=== PATIENT | male | born 1945 | race Caucasian/White ===

== ENCOUNTER 2017-05-27 01:27 | Emergency (ER) | payer OTHER, MEDICARE ==
[~2017-05-27] VITALS: Ht 170.2 cm; Wt 68.8 kg
[~2017-05-27 01:27] MED LIST: ACETAMIN OR; ASA LO-DOSE81 MG OR; ASPIRIN81 MG OR; ATORVASTATI80 MG/TAB PO; ATORVASTATIN CA40 MG PO; B-1100 MG OR; BABY ASPIRIN81 MG OR; BACTRIM DS1 TAB PO; BACTROBAN2 % EX; BAYER ASPIRIN E81 MG PO; CIPROFLOXACN500 MG PO; CRESTOR40 MG OR; CYANOCOBALAM1000 MCG IJ; DOXYCYCL HYC100 MG OR; EFFEXOR75 MG PO; FOLIC ACID1 MG OR; FOLIC ACID5 MG OR; FOLITAB OR; GABAPENTIN100 M1 OR; GABAPENTIN600 MG OR; GABAPENTIN800 MG PO; GABARONE100 MG OR; HYDROCHLOROT12.5 MG OR; HYDROXYZINE OR; INSULIN 70/30; KEFLEX250 MG OR; LIBRIUM25 MG OR; LISINOP/HCTZ1 TA1 OR; LOPID600 MG OR; LOPRESSOR25 MG OR; LORTAB 5/3255 MG PO; LOSARTAN POT50 MG PO; METFORMIN500 MG PO; METOPROLOL25 MG OR; NEURONTIN600 MG OR; NEURONTIN600 MG PO; NOVOLIN 70/30 SC; OXYCODONE5 M1 OR; PAIN RELIEF500 MG OR; PROZAC20 MG OR; RISPERDAL0.25 MG PO; RISPERDAL1 M1 OR; RISPERDAL1 MG PO; ROBAXIN-750750 MG OR; ROBAXIN-750750 MG PO; ROBAXIN250 MG OR; TYLOPHEN500 MG PO; VITAMIN B-1100 M1 OR; VITAMIN B-121000 MCG OR; ZESTRIL20 MG OR; ZOCOR10 MG OR; [UNRECOGNIZED DRUG - MIXTURE] PO
[2017-05-27] MEDS ORDERED: LANTUS100 UNIT/M SC (01:46)
[2017-05-27] MEDS ORDERED: SERTRALINE50 MG PO (01:46)
[2017-05-27 02:24] LABS: HEMATOCRIT 38.8 % (39.0-50.0); HEMOGLOBIN 13.7 g/dl (14.0-18.0); IMMATURE GRANULOCYTES 0.3 % (0.0-1.0); MEAN CELL VOLUME 89.6 fL CALC (80.0-100.0); MEAN CORPUSCULAR HGB 31.6 pG CALC (26.0-32.0); MEAN CORPUSCULAR HGB CONC 35.3 g/L CALC (32.0-36.0); NEUT# 10.54 thou/uL (1.82-7.42); RED BLOOD COUNT 4.33 mill/uL (4.70-6.10); RED CELL DISTRI WIDTH 12.5 % (11.5-15.5)
[2017-05-27 02:36] LABS: ALBUMIN 4.3 g/dL (3.2-5.0); ALKALINE PHOSPHATASE 88 u/l (38-126); ANION GAP 18 (6-22 (CALC)); BILIRUBIN, TOTAL 0.8 mg/dL (0.0-1.4); BUN 18 mg/dL (8-23); BUN/CREATININE RATIO 23 (12-20 (CALC)); CALCIUM 9.9 mg/dL (8.4-10.2); CARBON DIOXIDE 26 mmol/l (22-30); CHLORIDE 97 mmol/l (95-108); CREATININE 0.8 mg/dL (0.7-1.3); GFR > 60 ML/MIN (>=60 (CALC)); GFR FOR AFR.AMER. > 60 ML/MIN (>=60 (CALC)); POTASSIUM 4.3 mmol/l (3.5-5.1); SGOT/AST 25 u/l (19-48); SGPT/ALT 48 u/l (11-66); SODIUM 137 mmol/l (137-146); TOTAL PROTEIN 7.2 g/dL (6.3-8.2)
[2017-05-27 02:38] LABS: GLUCOSE 479 mg/dL (82-115)
[2017-05-27 02:45] LABS: MYOGLOBIN 98 ng/mL (0 - 121)
[2017-05-27 02:55] LABS: URINE BILIRUBIN - DIPSTICK NEGATIVE (NEGATIVE); URINE BLOOD DIPSTICK NEGATIVE (NEGATIVE); URINE CLARITY CLEAR; URINE COLOR YELLOW; URINE GLUCOSE - DIPSTICK >=1000 mg/dL (NEGATIVE); URINE KETONE NEGATIVE (NEGATIVE); URINE LEUK ESTERASE NEGATIVE (NEGATIVE); URINE NITRITE - DIPSTICK NEGATIVE (Negative); URINE PROTEIN - DIPSTICK TRACE mg/dL (NEG-TRACE); URINE UROBILINOGEN - DIPSTICK 0.2 E.U./dL (0.2)
[2017-05-27 02:57] LABS: BARBITURATES NEGATIVE (NEGATIVE); COCAINE NEGATIVE (NEGATIVE); METHADONE NEGATIVE (NEGATIVE); OXCYCODONE NEGATIVE (NEGATIVE); TETRAHYDROCANNABIONOL NEGATIVE (NEGATIVE); TRICYLIC ANTIDEPRESSANTS NEGATIVE (NEGATIVE)
[2017-05-27 03:49] VITALS: BP 154/82
== END 2017-05-27 03:49 | disposition home or self-care (01) | DRG 639 ==
LOC: ED 01:27
PROVIDERS: Emergency Medicine
DX: E11.65 Type 2 diabetes mellitus with hyperglycemia (principal); Z79.52 Long term (current) use of systemic steroids; Z79.4 Long term (current) use of insulin; Z79.84 Long term (current) use of oral hypoglycemic drugs; Z72.89 Other problems related to lifestyle

== ENCOUNTER 2018-06-03 12:33 | Emergency (ER) | payer OTHER, MEDICARE ==
[~2018-06-03] VITALS: Ht 172.7 cm; Wt 65.9 kg
[~2018-06-03 12:33] MED LIST changes: +FLORASTOR250 M1 PO; +LANTUS100 UNIT/M SC; +LOSARTAN POT25 MG PO; +SERTRALINE50 MG PO
[2018-06-03 15:02] VITALS: BP 155/80
[2018-06-03] MEDS ORDERED: ORPHENADRINE100 MG PO (15:02)
[2018-06-03] MEDS ORDERED: PERCOGESI1 PO (15:02)
== END 2018-06-03 15:09 | disposition home or self-care (01) | DRG 605 ==
LOC: ED 12:33
DX: S20.212A Contusion of left front wall of thorax, initial encounter (principal); R07.81 Pleurodynia; W01.0XXA Fall on same level from slipping, tripping and stumbling without subsequent striking against object, initial encounter; Y93.K1 Activity, walking an animal; Y92.008 Other place in unspecified non-institutional (private) residence as the place of occurrence of the external cause

== ENCOUNTER 2018-08-21 14:12 | Observation (INO) | payer OTHER, MEDICARE ==
[~2018-08-21] VITALS: Ht 172.7 cm; Wt 64.1 kg
[~2018-08-21 14:12] MED LIST changes: +ORPHENADRINE100 MG PO; +PERCOGESI1 PO
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
[2018-08-21 14:39] LABS: HEMATOCRIT 36.1 % (39.0-50.0); HEMOGLOBIN 12.6 g/dl (14.0-18.0); IMMATURE GRANULOCYTES 0.2 % (0.0-5.0); MEAN CELL VOLUME 88.9 fL CALC (80.0-100.0); MEAN CORPUSCULAR HGB CONC 34.9 g/L CALC (32.0-36.0); NEUT# 8.21 thou/uL (1.82-7.42); RED BLOOD COUNT 4.06 mill/uL (4.70-6.10); RED CELL DISTRI WIDTH 12.6 % (11.5-15.5)
[2018-08-21] MEDS ORDERED: CVS PAIN RELIE PO (14:59)
[2018-08-21] MEDS ORDERED: VITAMIN B CO PO (15:00)
[2018-08-21] MEDS ORDERED: B-12 COMPL1000 MCG/M IM (15:01)
[2018-08-21 15:03] LABS: ALBUMIN 4.1 g/dL (3.2-5.0); ALKALINE PHOSPHATASE 94 u/l (38-126); ANION GAP 16 (6-22 (CALC)); BILIRUBIN, TOTAL 0.9 mg/dL (0.0-1.4); BUN 15 mg/dL (8-23); BUN/CREATININE RATIO 19 (12-20 (CALC)); CARBON DIOXIDE 22 mmol/l (22-30); CHLORIDE 104 mmol/l (95-108); CREATININE 0.8 mg/dL (0.7-1.3); GFR > 60 ML/MIN (>=60 (CALC)); GFR FOR AFR.AMER. > 60 ML/MIN (>=60 (CALC)); LIPASE 21 u/l (23-300); POTASSIUM 3.8 mmol/l (3.5-5.1); SGOT/AST 19 u/l (19-48); SODIUM 139 mmol/l (137-146); TOTAL PROTEIN 7.1 g/dL (6.3-8.2)
[2018-08-21] MEDS ORDERED: XALATAN 0.005%2.5 ML OP (15:03)
--- NOTE | 2018-08-21 15:10 | NUR ---
PATIENT ASSISTED TO SIDE OF BED TO USE URINAL. PATIENT REPORTS BEING UNABLE TO PROVIDE URINE SAMPLE AT THIS TIME. ASSISTED BACK ONTO STRETCHER. CALL LIGHT GIVEN. WILL CONTINUE TO MONITOR.
[2018-08-21 15:33] LABS: TSH, 3RD GENERATION 1.18 uIU/mL (0.47 - 4.68)
--- NOTE | 2018-08-21 15:49 | NUR ---
AT BEDSIDE TO DISCUSS RESULTS.
--- NOTE | 2018-08-21 16:01 | NUR ---
URINE SAMPLE OBTAINED VIA STRAIGHT CATH, URINE NOTED TO BE CLEAR YELLOW.
[2018-08-21 16:24] LABS: URINE BILIRUBIN - DIPSTICK NEGATIVE (NEGATIVE); URINE BLOOD DIPSTICK NEGATIVE (NEGATIVE); URINE COLOR YELLOW; URINE GLUCOSE - DIPSTICK NEGATIVE (NEGATIVE); URINE KETONE NEGATIVE (NEGATIVE); URINE LEUK ESTERASE NEGATIVE (NEGATIVE); URINE NITRITE - DIPSTICK NEGATIVE (Negative); URINE PROTEIN - DIPSTICK TRACE mg/dL (NEG-TRACE); URINE UROBILINOGEN - DIPSTICK 0.2 E.U./dL (0.2)
--- NOTE | 2018-08-21 16:40 | NUR ---
PATIENT ASSISTED TO AND FROM BSC, VANCO AND NS BOLUS INFUSING WELL. NO SIGNS OF DISTRESS NOTED, REPORTS PREVIOUSLY BEING TREATED FOR WOUND TO BOTTOM OF RIGHT FOOT. INFORMED.
--- NOTE | 2018-08-21 17:10 | NUR ---
PATIENT MEDICATED WITH 10 MG OF HYDRALAZINE SLOW IVP FOR TREATMENT OF BP 215/95.
--- NOTE | 2018-08-21 17:22 | NUR ---
SNACK PROVIDED PER PATIENT REQUEST.
--- NOTE | 2018-08-21 17:28 | NUR ---
APPROX. 1000 ML OF CLEAR YELLOW URINE OUT SINCE ARRIVAL TO ED.
--- NOTE | 2018-08-21 17:28 | NUR ---
ATTEMPT MADE TO CALL REPORT. NO ANSWER FROM [facility], WILL ATTEMPT AT LATER TIME.
--- NOTE | 2018-08-21 17:40 | NUR ---
ATTEMPT MADE TO CALL REPORTS, SPOKE TO ELMO. STATES NURSE WILL CALL BACK IN FIVE MINUTES.
--- NOTE | 2018-08-21 17:49 | NUR ---
REPORT GIVEN TO EMILIANA PERLA.
--- NOTE | 2018-08-21 17:53 | NUR ---
PT REPORT RECIEVED FROM DAMON LUO. PT TRANSPORTED [place] [facility] [place]ER ACCOMPIANED BY NURSE @[id number]. PT AMBULATED FROM STRETCHER TO BED W/ STEADY GAIT. VS DONE. ASSESSMENT COMPLETE. PT A/O X3. PERRLA. SPEECH IS CLEAR. PT APPEARS TO BE VERY ANXIOUS. RESP LABORED. SOB ON EXERTION. O2 @2L AT BEDSIDE. LUNG SOUNDS CLEAR. BOWEL SOUNDS ACTIVE X4. STRONG RADIAL AND PEDAL PULSES. PT C/O ACHING LT SHOULDER AND LOWER ABDOMINAL PAIN. 3 OUT OF 10 ON PAIN SCALE. REPOSITIONED FOR COMFORT. RELAXATION TECHNIQUES IN PLACE. DINNER PROVIDED. BSC NEAR BED. POC DISCUSSED. CALL LIGHT IN REACH. WILL CONTINUE TO MONITOR.
--- NOTE | 2018-08-21 18:00 | NUR ---
PATIENT TRANSPORTED TO [facility] VIA STRETCHER WITH TELE IN PLACE. EMILIANA PERLA AT BEDSIDE. PHONE, CLOTHING, SHOES AND WALLET TO [facility] WITH PATIENT. MEDS HOME WITH . CARE RELINQUISHED TO PAN.
--- NOTE | 2018-08-21 18:15 | NUR ---
PT APPEARS TO BE LESS ANXIOUS AT THIS TIME. EATING DINNER IN BED AND TALKING WITH FAMILY. CALL LIGHT IN REACH. WILL CONTINUE TO MONITOR.
[2018-08-21 18:23] VITALS: BP 169/75
[2018-08-21 19:05] VITALS: BP 159/68
--- NOTE | 2018-08-21 21:10 | NUR ---
PT HAS BEEN IN THE BATHROOM. IV SITE IS FREE FROM REDNESS OR EDMEA. HR IS REG,PULSES ARE STRONG X4, ABD IS SOFT WITH ACTIVE BS. BREATH SOUNDS ARE CLEAR, WITH NO C/O SOB, CONTINUE TO OBSERVE AND MONITOR. TELE MONITOR INPLACE.C/O PTSD WANTED ALL 4 SIDE RAILS UP EXPLAINED RULES OF THE HOSPITAL RE: 3 RAILS ONLY WITH BED TABLE NEXT TO THE BED. VERBALIZED UNDERSTANDING.
[2018-08-22] VITALS (8 sets, daily range): BP systolic 106–192; BP diastolic 42–76
--- NOTE | 2018-08-22 00:45 | NUR ---
PT IS RESTING INBETWEEN GOING TO THE BATHROOM, IV SITE IS FREE FROM REDNESS OR EDEMA. CONITNUE TO OBSERVE AND MONITOR TELE MONITOR IN PLACE.
--- NOTE | 2018-08-22 04:45 | NUR ---
PT IS RESTING IN BED WITH EYES CLOSED. IV SITE IS FREE FROM REDNESS OR EDEMA. CONTINUE TO OSEBRVE AND MONITOR.
--- NOTE | 2018-08-22 06:41 | NUR ---
PT BLOOD SUGAR IS 70 GIVING JUICE AND JELLO
[2018-08-22 06:53] LABS: CHOLESTEROL HDL RATIO 2.9 (<4.4 (CALC)); MAGNESIUM 1.8 mg/dL (1.6-2.3)
--- NOTE | 2018-08-22 11:35 | NUR ---
ORTHOSTATIC BP'S OBTAINED; NOTED ELEVATED BP, INFORMED . ORDERS FOR APRESOLINE IV. PT SITTING IN RECLINER AT BEDSIDE, VISITOR AT BEDSIDE, CALL LIGHT IN REACH, CONTINUE TO MONITOR.
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
--- NOTE | 2018-08-22 13:45 | NUR ---
PT IN CHAIR AT BEDSIDE, ARGUING WITH AT BEDSIDE REGARDING POC AND PT'S UNDERWEAR. BOTH APPEAR UPSET, PT STATES HE FEELS ANXIOUS AND NEEDS SOMETHING FOR ANXIETY. TO BEDSIDE DISCUSSING POC SINCE PT DOES NOT WANT TO BE DISCHARGED, XANAX ORDERED. MEDICATED PER MAR. CONTINUE TO MONITOR.
--- NOTE | 2018-08-22 14:40 | NUR ---
PT BEING TAKEN DOWN TO RADIOLOGY FOR EXAM VIA WHEELCHAIR ACCOMPANIED BY COVERAGE SPECIALIST RN. CONTINUE TO MONITOR.
--- NOTE | 2018-08-22 15:04 | NUR ---
PT RETURNED FROM RADIOLOGY, RESTARTED FLUIDS AND DISCUSSED ANTIBIOTIC.
--- NOTE | 2018-08-22 19:55 | NUR ---
REPORT FROM RODOLFO HOPSON. PT SITTING UP IN BED. ALERT AND ORIENTED. RESPIRATIONS EVEN AND UNLABORED. PT DENIES ANY PAIN OR DISCOMFORT. IV INFUSING WITHOUT DIFFICULTY. IV SITE APPEARS HEALTHY. ANIMAL NURSERY WORKER IN PLACE. ASSISTED PT TO BATHROOM TO VOID. PT VOID CLEAR YELLOW URINE. PT AMBULATED BACK TO BED WITH MINIMAL ASSISTANCE. DISCUSSED POC. PT DENIES ANY DIZZINESS. CALL LIGHT WITHIN REACH. WILL CONTINUE TO MONITOR.
--- NOTE | 2018-08-22 23:50 | NUR ---
ASSISTED PT TO BATHROOM AT THIS TIME TO VOID. PT AMBULATED WITH STAND BY ASSIST AND WALKED WITH STEADY GAIT. PT SPILLED URINAL PRIOR TO CALLING FOR ASSISTANCE. NEW GOWN PROVIDED AND LINENS CHANGED. PT POSITIONED BACK IN BED. MEDICATED WITH PRN APAP FOR GENERALIZED PAIN. CALL LIGHT WITHIN REACH. WILL CONTINUE TO MONITOR.
[2018-08-23] VITALS: BP 165/75
[2018-08-23 04:08] VITALS: BP 115/60
--- NOTE | 2018-08-23 05:01 | NUR ---
PT RESTING IN BED WITH EYES CLOSED. RESPIRATIONS EVEN AND UNLABORED. NO S/S OF PAIN OR DISCOMFORT NOTED. CALL LIGHT WITHIN REACH. WILL CONTINUE TO MONITOR.
[2018-08-23 10:20] VITALS: BP 152/68
--- NOTE | 2018-08-23 10:24 | NUR ---
PT RESTING IN BED, NO SIGNS OF DISTRESS NOTED, RESP EVEN AND UNLABORED. DISCUSSED POC, PT STATES HE IS UNSURE ABOUT GOING HOME, PT HAS AMBULATED TO BED WITHOUT DIFFICULTIES, OR SOB, OR DIZZYNESS. ASSESSMENT COMPLETED AT THIS TIME. MEDICATED PER OCT. CALL LIGHT IN REACH,CONTINUE TO MONITOR.
[2018-08-23 11:15] VITALS: BP 171/73
[2018-08-23 15:10] VITALS: BP 160/72
--- NOTE | 2018-08-23 15:25 | NUR ---
PT SITTING IN RECLINER AT BEDSIDE, REQUESTING PRUNE JUICE TO MOVE BOWELS STATES HE HAD A BM YESTERDAY BUT WAS NOT ENOUGH. ANTIBIOTIC INITIATED, PT BEGAN TO STATE HIS STOMACH IS UPSET FROM THE ANTIBIOTIC,MEDICATION EDUCATION PROVIDED. PRUNE JUICE PROVIDED. PT VERY ANXIOUS, MEDICATED WITH XANAX. CALL LIGHT IN REACH,CONTINUE TO MONITOR.
--- NOTE | 2018-08-23 16:34 | NUR ---
PT SITTING IN RECLINER AT BEDSIDE READING NEWSPAPER STATES HE WOULD LIKE TO WAIT UNTIL HE HAS HAD DINNER BEFORE HE IS DISCHARGED. CALL LIGHT IN REACH,CONTINUE TO MONITOR.
--- NOTE | 2018-08-23 17:14 | NUR ---
PT SITTING IN RECLINER, STATES HE IS READY TO GO HOME SINCE WE ARE NO LONGER DOING ANYTHING ABOUT HIS BOWELS. INFORMED PT THAT HE HAD A BM YESTERDAY, STATES "BUT THAT WAS YESTERDAY". DISCUSSED WITH PT DISCHARGE PLANS AND NO NEW PRESCRIPTIONS, NO CHANGES TO HIS HOME MEDICATIONS, AND PT TO F/U WITH HIS PRIMARY CARE PROVIDER, VERBALIZED UNDERSTANDING. IV SITE REMOVED, CATHETER INTACT. TELEMETRY REMOVED AND PT DRESSED. PT AWAITING HIS TO ARRIVE. CALL LIGHT IN REACH,CONTINUE TO MONITOR.
--- NOTE | 2018-08-23 17:21 | NUR ---
Discharge instructions given. Patient verbalizes understanding of same. Discharged in stable condition via Wheelchair to Home with staff. All belongings sent with pt.
== END 2018-08-23 17:19 | disposition home or self-care (01) | DRG 948 ==
LOC: ED 14:12 → ED-I 16:25 → ED 16:30 → MS2 16:31
PROVIDERS: Family Medicine; ADMIT Internal Medicine; ATTEND Internal Medicine
DX: R53.1 Weakness (principal); E87.2 Acidosis; R26.89 Other abnormalities of gait and mobility; I10 Essential (primary) hypertension; E11.65 Type 2 diabetes mellitus with hyperglycemia; E11.51 Type 2 diabetes mellitus with diabetic peripheral angiopathy without gangrene; E11.40 Type 2 diabetes mellitus with diabetic neuropathy, unspecified; F43.10 Post-traumatic stress disorder, unspecified; J44.9 Chronic obstructive pulmonary disease, unspecified; F41.9 Anxiety disorder, unspecified; F32.9 Major depressive disorder, single episode, unspecified; Z86.73 Personal history of transient ischemic attack (TIA), and cerebral infarction without residual deficits; Z91.11 Patient's noncompliance with dietary regimen; Z79.4 Long term (current) use of insulin; Z87.11 Personal history of peptic ulcer disease; Z87.891 Personal history of nicotine dependence; Z72.89 Other problems related to lifestyle

== ENCOUNTER 2018-08-30 10:22 | Inpatient (IN) | payer MEDICARE ==
[2018-08-30] VITALS (13 sets, daily range): BP systolic 145–190; BP diastolic 67–82
[~2018-08-30] VITALS: Ht 172.7 cm; Wt 64.1 kg
[~2018-08-30 10:22] MED LIST changes: +B-12 COMPL1000 MCG/M IM; +CVS PAIN RELIE PO; +VITAMIN B CO PO; +XALATAN 0.005%2.5 ML OP
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
--- NOTE | 2018-08-30 11:01 | NUR ---
PT PROVIDED ZOFRAN ORDERED.
[2018-08-30 11:33] LABS: HEMATOCRIT 41.2 % (39.0-50.0); HEMOGLOBIN 14.3 g/dl (14.0-18.0); IMMATURE GRANULOCYTES 0.2 % (0.0-5.0); MEAN CELL VOLUME 89.2 fL CALC (80.0-100.0); MEAN CORPUSCULAR HGB CONC 34.7 g/L CALC (32.0-36.0); NEUT# 5.98 thou/uL (1.82-7.42); RED BLOOD COUNT 4.62 mill/uL (4.70-6.10); RED CELL DISTRI WIDTH 12.6 % (11.5-15.5)
[2018-08-30 11:43] LABS: ALBUMIN 4.2 g/dL (3.2-5.0); ALKALINE PHOSPHATASE 113 u/l (38-126); ANION GAP 21 (6-22 (CALC)); BILIRUBIN, TOTAL 0.8 mg/dL (0.0-1.4); BUN 13 mg/dL (8-23); BUN/CREATININE RATIO 18 (12-20 (CALC)); CARBON DIOXIDE 24 mmol/l (22-30); CHLORIDE 100 mmol/l (95-108); CREATININE 0.7 mg/dL (0.7-1.3); ETHYL ALCOHOL 0 mg/dl (0-30); GFR > 60 ML/MIN (>=60 (CALC)); GFR FOR AFR.AMER. > 60 ML/MIN (>=60 (CALC)); SGOT/AST 27 u/l (19-48); SODIUM 140 mmol/l (137-146); TOTAL PROTEIN 7.4 g/dL (6.3-8.2)
[2018-08-30 11:48] LABS: POTASSIUM 4.6 mmol/l (3.5-5.1)
--- NOTE | 2018-08-30 12:46 | NUR ---
PT FINISHES ORAL CONTRAST, RADIOLOGY AWARE.
--- NOTE | 2018-08-30 13:58 | NUR ---
PT RETURNS FROM CT, WAITS IN ROOM FOR RESULTS.
[2018-08-30 16:08] LABS: URINE BILIRUBIN - DIPSTICK NEGATIVE (NEGATIVE); URINE BLOOD DIPSTICK NEGATIVE (NEGATIVE); URINE COLOR YELLOW; URINE GLUCOSE - DIPSTICK 500 mg/dL (NEGATIVE); URINE KETONE NEGATIVE (NEGATIVE); URINE LEUK ESTERASE NEGATIVE (NEGATIVE); URINE NITRITE - DIPSTICK NEGATIVE (Negative); URINE PROTEIN - DIPSTICK 30 mg/dL (NEG-TRACE); URINE UROBILINOGEN - DIPSTICK 0.2 E.U./dL (0.2)
[2018-08-30 16:09] LABS: URINE RBC 0-2 RBC/hpf (0-5); URINE WBC 0-2 WBC/hpf (0-5)
[2018-08-30 16:11] LABS: BARBITURATES NEGATIVE (NEGATIVE); COCAINE NEGATIVE (NEGATIVE); METHADONE NEGATIVE (NEGATIVE); OXCYCODONE NEGATIVE (NEGATIVE); TETRAHYDROCANNABIONOL NEGATIVE (NEGATIVE); TRICYLIC ANTIDEPRESSANTS NEGATIVE (NEGATIVE)
--- NOTE | 2018-08-30 17:05 | NUR ---
PT AWARE OF PENDING ADMISSION R/T ELEVATED BP AND CARDENE DRIP. PT ASSISTED TO BSC.
[2018-08-30] MEDS ORDERED: XALATAN0.005 % OU (17:25)
[2018-08-30] MEDS ORDERED: BRIMONIDINE0.2 % OS (17:26)
[2018-08-30] MEDS ORDERED: B-125000 MC2 PO (17:28)
[2018-08-30] MEDS ORDERED: METHOCARBAM500 MG PO (17:29)
[2018-08-30] MEDS ORDERED: PROAIR HFA IN (17:31)
[2018-08-30] MEDS ORDERED: NOVOLOG MIX SC (17:34)
--- NOTE | 2018-08-30 17:44 | NUR ---
REPORT CALLED TO PHYLLIS IN ICU, TO UNIT SOON.
--- NOTE | 2018-08-30 18:05 | NUR ---
PT ARRIVED TO UNIT ON STRETCHER WITH STATION REPAIRER & IV CARDENE RUNNING IN STABLE CONDITION. PT ABLE TO AMBULATE WITH MINIMAL ASSISTANCE TO ICU 2. PT WHINY SINCE ARRIVAL. GIVEN WARM BLANKETS x2. CARDENE STOPPED FOR BP OF 134/67. PT ON RA. AT BEDSIDE. PT REQUEST "WE TAP HIS FEET TO WAKE HIM UP BC HE HAS PTSD AND WILL WAKE UP SWINGING."
--- NOTE | 2018-08-30 19:00 | NUR ---
BEDSIDE REPORT RECEIVED FROM DAMON FERGUSON. PT RESTING IN BED SEMI FOWLERS WITH AT BEDSIDE; ALERT AND ORIENTED. REQUESTING SNACK. DENIES PAIN CURRENLTY. RESPIRATIONS EVEN AND UNLABORED ON ROOM AIR. BLOOD PRESSURE ELEVATED. CARDENE DRIP DISCONTINUED BY DAY SHIFT. IV SITE APPEARS HEALTHY AND IS CURRENTLY SALINE LOCKED. ORIENTED TO ROOM AND CALL LIGHT SYSTEM. PLAN OF CARE DISCUSSED. PT ENCOURAGED TO VERBALIZE CONCERNS. STATES UNDERSTANDING. SAFETY MEASURES IN PLACE. CALL LIGHT WITHIN REACH.
--- NOTE | 2018-08-30 20:11 | NUR ---
ASSESSMENT AND ADMISSION COMPLETE. PT VERY TALKATIVE AND PLEASANT. DR. CABELLO ORDERED HOME MEDICATIONS TO BE RESTARTED AND ONE DOSE OF CLONDINE FOR ELEVATED BP. PT DOES TAKE INSULIN FOR HIS DM AND METFORMIN. CT COMPLETED TODAY WITH IV CONTRAST WITH INSTRUCTIONS TO HOLD METFORMIN FOR 2 DAYS. ALL MEDICATIONS SENT HOME WITH ; KEPT EYE GTTS AND INHALER IN MED ROOM [facility]. ACCU CHECK IS 231.
--- NOTE | 2018-08-30 20:37 | NUR ---
PT SITTING UP EATING SNACK.
--- NOTE | 2018-08-30 22:54 | NUR ---
HS CARE GIVEN AND FACE SHAVED. PT CONTINUES TO DENY ANY PAIN. BLOOD PRESSURE DOWN TO 145/69 AFTER CLONDINE. NO OTHER REQUESTS OR CONCERNS AT THIS TIME.
--- NOTE | 2018-08-30 23:19 | NUR ---
JAYRO YEPEZ CALLED FOR AN UPDATE; PROVIDED CODE. ALL QUESTIONS ANSWERED TO SATISFACTION.
[2018-08-31] VITALS (13 sets, daily range): BP systolic 114–183; BP diastolic 56–77
--- NOTE | 2018-08-31 00:18 | NUR ---
PT C/O BEING HOT AND REMOVED ALL BLANKETS. AFEBRILE 97.3. C/O TINGLING TO LEGS; GABAPENTIN WAS ADMINISTERED AT HS. NO OTHER REQUESTS AT THIS TIME. NO VOIDS SINCE IN ER.
--- NOTE | 2018-08-31 01:00 | NUR ---
PT CONTINUES TO C/O BEING HOT AND IS SLIGHTLY SWEATY. ACCU CHECK 204. C/O HEADAHCE AND REQUESTS TYLENOL WHICH HE TAKES AT HOME FOR CHRONIC HEADAHCES.
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
--- NOTE | 2018-08-31 03:59 | NUR ---
PT ASLEEP AT THIS TIME WITH NO SIGNS OF DISTRESS. RESPIRATTIONS EVEN AND UNLABORED ON OXYGEN; SATURATIONS HAVE REMAINED ABOVE 90%. PT IS SINUS MAYURI ON TECHNICIAN SUBMARINE CABLE EQUIPMENT WITH HR LOW 48; ASYMPTOMATIC.
--- NOTE | 2018-08-31 05:00 | NUR ---
LAB AT BEDSIDE.
[2018-08-31 05:40] LABS: HEMATOCRIT 37.5 % (39.0-50.0); IMMATURE GRANULOCYTES 1.1 % (0.0-5.0); MEAN CELL VOLUME 89.7 fL CALC (80.0-100.0); MEAN CORPUSCULAR HGB 31.1 pG CALC (26.0-32.0); MEAN CORPUSCULAR HGB CONC 34.7 g/L CALC (32.0-36.0); NEUT# 5.67 thou/uL (1.82-7.42); RED BLOOD COUNT 4.18 mill/uL (4.70-6.10); RED CELL DISTRI WIDTH 12.7 % (11.5-15.5)
[2018-08-31 05:48] LABS: ANION GAP 13 (6-22 (CALC)); BUN 14 mg/dL (8-23); BUN/CREATININE RATIO 18 (12-20 (CALC)); CARBON DIOXIDE 28 mmol/l (22-30); CHLORIDE 102 mmol/l (95-108); CREATININE 0.7 mg/dL (0.7-1.3); GFR > 60 ML/MIN (>=60 (CALC)); GFR FOR AFR.AMER. > 60 ML/MIN (>=60 (CALC)); POTASSIUM 3.8 mmol/l (3.5-5.1); SODIUM 139 mmol/l (137-146)
[2018-08-31 05:50] LABS: MAGNESIUM 2.4 mg/dL (1.6-2.3)
--- NOTE | 2018-08-31 06:19 | NUR ---
PT RESTING IN BED ON LEFT SIDE; AWAKE. STATES THAT HEADACHE HAS SUBSIDED. VS STABLE.
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
--- NOTE | 2018-08-31 07:35 | NUR ---
PT ON BSC, SELF CARE PROVIDED, BACK TO SIDE OF BED AND THEN INTO BED WITH MIN ASSIST, REPOSITIONED SELF FOR COMFORT, MEAL TRAY SET UP ASSIST PROVIDED.
--- NOTE | 2018-08-31 08:40 | NUR ---
PT RESTING IN BED, COMFORT MEASURES PROVIDED, WILL CONTINUE TO MONITOR
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
--- NOTE | 2018-08-31 08:55 | NUR ---
PT REQUESTING WHEN HOUSEKEEPING COME IN IF THEY COULD" CLEAN OFF MY TABLE AND CLEAN MY COMB AND SUCH THAT WOULD BE GOOD" INFORMED PT THAT HOUSEKEEPING ISN'T RESPONSIBLE FOR CLEANING YOUR COMB BUT WILL HAVE THEM WIPE OFF TRAY TABLE AND MOP FLOORS.
--- NOTE | 2018-08-31 09:05 | NUR ---
SET UP ASSIST PROVIDED FOR REHEAT PART OF AM MEAL, FRESH COFFEE PROVIDED PER REQUEST, ADMINISTRATION IN TO SEE PT EARLIER FOR AM ROUNDS, TOOK AM MEDICATIONS W/O INCIDENT TOLERATED WELL, BP STABLE TELE READINTG SB SR RATE 50-60'S, CALL MONTOYA WITHIN REACH.
--- NOTE | 2018-08-31 09:25 | NUR ---
PT REQUESTING HOSEA CRACKERS, NONE ON UNIT, CALLED DIETARY AND REQUESTED, PT NOTIFIED.
--- NOTE | 2018-08-31 10:08 | NUR ---
PT STATING THAT HE POURED WATER IN HIS BED AND HIS LINENS ARE WET, LINEN AND GOWN CHANGED, PT TOLERATED WELL.
--- NOTE | 2018-08-31 10:48 | NUR ---
INTO SEE PATIENT, PLAN OF CARE DISCUSSED INCLUDING PT CONSULT, THERAPYAND TRANSFER TO MEDICAL FLOOR TO INCREASE MOVEMENT AND ACTIVITY, ALL QUESTIONS ANSWERED, CALL MONTOYA WITHIN REACH, WILL CONTINUE TO MONITOR.
--- NOTE | 2018-08-31 11:13 | NUR ---
ACCU CHECK COMPLETED, COVERAGE GIVEN ORDERED, MORE COFFEE PROVIDED AT PT REQUEST, AWAITING AFTERNOON MEAL, CALL MONTOYA WITHIN REACH. IN TO VISIT.
--- NOTE | 2018-08-31 11:23 | NUR ---
SET UP ASSIST PROVIDED FOR AFTERNOON MEAL, REMAINS AT BEDSIDE, COFFEE PROVIDED FOR SPOUSE PER REQUEST.
--- NOTE | 2018-08-31 11:57 | NUR ---
PT CALLS NURSE INTO ROOM, STATES HE IS DONE WITH HIS MEAL 75% INTAKE NOTE AND THAT HE NOTICED THERE WAS SUPPOSED TO BE AN UNSWEET TEA ON HIS TRAY AND COULD WE ORDER IT RACQUEL, DIETARY NOTIFIED.
--- NOTE | 2018-08-31 12:02 | NUR ---
UNSWEET TEA DELIVERED TO PATIENT
--- NOTE | 2018-08-31 12:53 | NUR ---
REQUESTING BLINDS BE CLOSED, "THE SUN IS AWFULLY BRIGHT" THIS NURSE UNABLE TO CLOSET THEM; MAINTAINENCE NOTIFIED
--- NOTE | 2018-08-31 12:57 | NUR ---
MAINTENANCE IN ROOM TO FIX BLINDS.
--- NOTE | 2018-08-31 13:06 | NUR ---
RT AT BEDSIDE FOR NEB
--- NOTE | 2018-08-31 13:28 | NUR ---
PHYSICAL THERAPY AT BEDSIDE
--- NOTE | 2018-08-31 13:49 | NUR ---
PHYSICAL THERAPT CONTINUES WITH PATIENT
--- NOTE | 2018-08-31 15:28 | NUR ---
pt resting in bed at this time, tolerated therapy well, seemed pleased with his activity, Fresh water provided in pitcher, offers no new complaints, call peters within reach.
--- NOTE | 2018-08-31 15:36 | NUR ---
pt oob to bsc, call peters within reach
--- NOTE | 2018-08-31 15:45 | NUR ---
pt puts sales communications manager light this nurses answers, pt back in bed without assist continent of urine and small soft brown bm, self samson care provided, call peters within reach.
--- NOTE | 2018-08-31 16:14 | NUR ---
pt family member brought pt pwn walkerfrom home for usage with ambulation left at bedside.
--- NOTE | 2018-08-31 17:23 | NUR ---
ACCU CHECK COMPLETED AND COVERAGE GIVENAS ORDERED, SET UP ASSIST PROVIDED FOR PM MEAL, CALL MONTOYA WITHIN REACH
--- NOTE | 2018-08-31 18:12 | NUR ---
TOLERATED PM MEAL WITHOUT INCIDENT, CALL MONTOYA WITHIN REACH
--- NOTE | 2018-08-31 18:40 | NUR ---
REPORT FROM Ella EISENBERG RN. ASSUMED PT. CARE.
--- NOTE | 2018-08-31 18:50 | NUR ---
PT. IT DESKTOP SUPPORT TECHNICIAN LIGHT. ASKING WHAT THE TEMPERATURE IN THE ROOM IS. PT. WAS INFORMED THAT THE TEMPERATURE WAS AT ITS LOWEST (COLDEST SETTING). PT. STATES HE WAS "HOT". OFFERED FAN, BUT PT. REFUSED AT THIS TIME.
--- NOTE | 2018-08-31 19:50 | NUR ---
PT. FOUND AWAKE, ALERT, ORIENTED X 3. LIRIANO. RONN. RESPS EVEN AND UNLABORED. SKIN WARM AND DRY. AFEBRILE. BENIGN ASSESSMENT. LUNGS CTA. PULSES INTACT. BP SLIGHTLY ELEVATED. WILL MEDICATE ORDERED. HR STABLE. CALL LIGHT WITHIN REACH. WILL CONTINUE TO MONITOR.
--- NOTE | 2018-08-31 20:30 | NUR ---
PT. ASSISTED TO BSC. SMALL SOFT, BM NOTED ALONG WITH APPROX 300 CC URINE OUT AT THIS TIME. PT. ASSISTED BACK TO BED AND PLACED BACK ON MONITOR. CALL LIGHT REMAINS WITHIN REACH. WILL CONTINUE TO MONITOR.
--- NOTE | 2018-08-31 21:00 | NUR ---
PT. PROVIDED WITH HS DIABETIC SNACK AT THIS TIME. WILL CONTINUE TO MONITOR.
--- NOTE | 2018-08-31 22:30 | NUR ---
PT. MEDICATED WITH BP MED AND PAIN MEDICATION AT THIS TIME. WILL CONTINUE TO ASSESS FOR IMPROVEMENT IN SX.
--- NOTE | 2018-08-31 23:00 | NUR ---
THIS RN CALLED TO ROOM. PT. REQUESTING THAT OVERHEAD LIGHT BE TURNED OFF AT THIS TIME. BATHROOM DOOR OPENED TO ALLOW ACCEPTABLE LEVEL OF LIGHT INTO ROOM. PT. DENIES OTHER COMPLAINTS OR NEEDS.
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
[2018-09-01] VITALS: BP 114/57
--- NOTE | 2018-09-01 01:11 | NUR ---
PT. ASSISTED TO BSC AT THIS TIME. APPROX 200 CC CLEAR URINE OUT AT THIS TIME
--- NOTE | 2018-09-01 01:15 | NUR ---
PT. ASSISTED BACK TO BED. REMAINS IN NO DISTRESS. MEDICATED FOR MILD HEADACHE AT THIS TIME. OFFERED TO TURN DOWN LIGHTS, BUT PT. REFUSED AT THIS TIME. WILL CONTINUE TO MONITOR.
--- NOTE | 2018-09-01 01:35 | NUR ---
PT. FISH PITCHER LIGHT. REQUESTING LIGHTS BE TURNED DOWN AT THIS TIME. REQUEST PERFORMED.
--- NOTE | 2018-09-01 02:30 | NUR ---
PT. WORKSHOP MANAGER LIGHT. STATES HE THINKS HIS SUGAR IS LOW. PT. STATES HE IS "QUEEZY" AND HIS "MOUTH IS DRY" AND HE STATES THAT HAPPENS WHEN HIS SUGAR IS LOW. ACCUCHECK FOUND TO BE 100 G/DL AT THIS TIME. REASSURED AND ENCOURAGED TO GET SOME REST.
[2018-09-01 04:00] VITALS: BP 124/62
--- NOTE | 2018-09-01 05:00 | NUR ---
PT. ASSISTED BACK TO BSC. REMAINS IN NO DISTRESS. BP/HR STABLE. AFEBRILE. CALL LIGHT REMAINS WITHIN REACH. WILL CONTINUE TO MONITOR.
--- NOTE | 2018-09-01 05:15 | NUR ---
LAB AT BEDSIDE TO DRAW PATIENT.
[2018-09-01 05:34] LABS: HEMATOCRIT 38.7 % (39.0-50.0); HEMOGLOBIN 13.2 g/dl (14.0-18.0); IMMATURE GRANULOCYTES 0.1 % (0.0-5.0); MEAN CORPUSCULAR HGB 30.3 pG CALC (26.0-32.0); MEAN CORPUSCULAR HGB CONC 34.1 g/L CALC (32.0-36.0); NEUT# 7.42 thou/uL (1.82-7.42); RED BLOOD COUNT 4.35 mill/uL (4.70-6.10); RED CELL DISTRI WIDTH 12.4 % (11.5-15.5)
[2018-09-01 06:00] LABS: ALBUMIN 3.8 g/dL (3.2-5.0); ALKALINE PHOSPHATASE 86 u/l (38-126); AMYLASE 44 u/l (30-110); ANION GAP 16 (6-22 (CALC)); BILIRUBIN, TOTAL 0.5 mg/dL (0.0-1.4); BUN 11 mg/dL (8-23); BUN/CREATININE RATIO 14 (12-20 (CALC)); CARBON DIOXIDE 25 mmol/l (22-30); CHLORIDE 104 mmol/l (95-108); CREATININE 0.8 mg/dL (0.7-1.3); GFR > 60 ML/MIN (>=60 (CALC)); GFR FOR AFR.AMER. > 60 ML/MIN (>=60 (CALC)); LIPASE 42 u/l (23-300); MAGNESIUM 2.1 mg/dL (1.6-2.3); POTASSIUM 4.1 mmol/l (3.5-5.1); SGOT/AST 26 u/l (19-48); SODIUM 141 mmol/l (137-146); TOTAL PROTEIN 6.7 g/dL (6.3-8.2)
--- NOTE | 2018-09-01 07:15 | NUR ---
PT AWAKE RESTING IN BED, ALERT AND ORIENTED, TELE READING SR RATE IN THE 80'S BP STABLE AND PT AFEBRILE, AM ASSESSMETNT COMPLETED SEE INTERVENTIONS. LUNGS CLEAR WITH NO SOB OR DISTRESS NOTED AT REST, O2 ONAT 2L VIA NC, SKIN WARM DRY AND INTACT WITH SMALL DRY ABRASIONS NOTED TO BILATERAL KNEES, NO S/SO INFECTION NOTED, COMFORT MEASURES PROVIDED, CALL MONTOYA WITHIN REACH, WILL CONTINUE TO MONITOR,
--- NOTE | 2018-09-01 07:45 | NUR ---
PT PLACES HOT DIP GALVANIZER LIGHT TO ASK IF HE CAN EAT THE SALT THAT IS ON HIS TRAY, EDUCATED SHERYL MARTINES WITHIN REACH
[2018-09-01 08:00] VITALS: BP 150/69
--- NOTE | 2018-09-01 08:00 | NUR ---
PT CALLED AFTER DROPPING SILVERWARE ON FLOOR, ASKING STAFF TO WASH AND REPLACE FOR HIM, COMPLETED REQUESTED.
--- NOTE | 2018-09-01 08:28 | NUR ---
DIETARY AT BEDSIDE FOR MEAL SELECTION
--- NOTE | 2018-09-01 08:48 | NUR ---
PT CALLS REQUESTING COFFEE HEATED UP "NOT TO HOT JUST WARM IT UP A LITTLE PLEASE", DONE REQUESTED. MEAL TRAY REMOVED, PT TOLERATED AM MEAL WELL.
--- NOTE | 2018-09-01 09:10 | NUR ---
R.T. AT BEDSIDE PT REQUESTING TO "FINISH MY COFFEE, BEFORE MY BREATHIG TREATMENT PLEASE" R.T. TO RETURN LATER.
--- NOTE | 2018-09-01 09:39 | NUR ---
PT SPEAKING WITH FAMILY MEMBER VIA ICU PORTABLE PHONE
--- NOTE | 2018-09-01 10:00 | NUR ---
IN TO SEE PATIENT, PLAN OF CARE DISCUSSED INCLUDING POTENTIAL D/C TODAY, IF P.T. IN TO SEE PATIENT AND DETERMINE NEEDS WITH PERSONAL WALKER CURRENTLY AT BEDSIDE, P.T. NOTIFIED OF REQUEST FOR PT TO SEE PATIENT SOON POSSIBLE THIS AM
--- NOTE | 2018-09-01 10:47 | NUR ---
NAYA BROTHERS AT [facility]
--- NOTE | 2018-09-01 11:09 | NUR ---
ACCU CHECK COMPLETED AND INSULIN COVERAGE GIVEN ORDERED, PT REPOSITIONS SELF FOR COMFORT, CALL MONTOYA WITHIN REACH
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
[2018-09-01 12:00] VITALS: BP 120/58
--- NOTE | 2018-09-01 12:05 | NUR ---
PT REQUESTED MEAL TO BE REHEATED, DONE REQUESTED.
[2018-09-01] MEDS ORDERED: TRAMADOL HCL50 MG PO (12:21)
[2018-09-01] MEDS ORDERED: LOSARTAN POT50 MG PO (12:21)
--- NOTE | 2018-09-01 12:42 | NUR ---
ATE MINIMAL OF MEAL BUT DID TAKE IN 100% OF CHOCOLATE GLUCERNA AND TOLERATING WELL. CALL MONTOYA WITHIN REACH
--- NOTE | 2018-09-01 12:54 | NUR ---
PT AWARE OF DISCHARGE ORDER TO HOME WITH HOME HEALTH. PT TO CALL FOR TRANSPORT.
--- NOTE | 2018-09-01 13:08 | NUR ---
CONTINUES TO ATTEMPT TO GET AHOLD OF HIS SPOUSE OR FAMILY MEMBER FOR TRASNPORT. HH SELECTION COMPLETED WELL.
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
--- NOTE | 2018-09-01 13:37 | NUR ---
PT STATES HE GOT AHOLD OF A FAMILY MEMBER WHO WILL LET HIS KNOW HE IS BEING DISCHARGED.
--- NOTE | 2018-09-01 13:55 | NUR ---
RESTING IN BED, ALERT AND ORIENTED, CALL MONTOYA WITHIN REACH, WILL CONTINUE TO MONITOR.
--- NOTE | 2018-09-01 15:13 | NUR ---
AT BEDSIDE, PT ASSISTED TO BSC, WALKER AND BELONGINGS TAKEN DOWNSTAIRS BY SPOUSE.
--- NOTE | 2018-09-01 15:25 | NUR ---
Discharge instructions given. Patient verbalizes understanding of same. Discharged in stable condition via Wheelchair to Home with family. All belongings sent with pt. SCRIPTS FOR ULTRAM AND COZAAR WITH PATIENT.
== END 2018-09-01 15:25 | disposition home health service (06) | DRG 305 ==
LOC: ED 10:22 → ED-I 17:00 → ED 17:27 → ICU 17:28
PROVIDERS: Emergency Medicine; Internal Medicine Nephrology; ADMIT Internal Medicine; ATTEND Internal Medicine
DX: I16.1 Hypertensive emergency (principal); I10 Essential (primary) hypertension; E11.51 Type 2 diabetes mellitus with diabetic peripheral angiopathy without gangrene; M19.90 Unspecified osteoarthritis, unspecified site; F43.10 Post-traumatic stress disorder, unspecified; J44.9 Chronic obstructive pulmonary disease, unspecified; E11.40 Type 2 diabetes mellitus with diabetic neuropathy, unspecified; E11.65 Type 2 diabetes mellitus with hyperglycemia; E78.5 Hyperlipidemia, unspecified; R26.89 Other abnormalities of gait and mobility; R53.1 Weakness; T42.6X5A Adverse effect of other antiepileptic and sedative-hypnotic drugs, initial encounter; T48.1X5A Adverse effect of skeletal muscle relaxants [neuromuscular blocking agents], initial encounter; F41.9 Anxiety disorder, unspecified; F32.9 Major depressive disorder, single episode, unspecified; G89.29 Other chronic pain; M54.9 Dorsalgia, unspecified; M54.2 Cervicalgia; F17.200 Nicotine dependence, unspecified, uncomplicated; Z72.89 Other problems related to lifestyle; Z79.4 Long term (current) use of insulin; Z86.73 Personal history of transient ischemic attack (TIA), and cerebral infarction without residual deficits
CPT/HCPCS: Q9967

== ENCOUNTER → 2018-11-09 | Outpatient (REF) | payer MEDICARE ==
[~2018-11-09] MED LIST changes: +B-125000 MC2 PO; +BRIMONIDINE0.2 % OS; +METHOCARBAM500 MG PO; +NOVOLOG MIX SC; +PROAIR HFA IN; +TRAMADOL HCL50 MG PO; +XALATAN0.005 % OU
== END | disposition home or self-care (01) ==
LOC: STRESS 13:12 → NUCMED 14:15
PROVIDERS: ATTEND Internal Medicine
DX: I20.9 Angina pectoris, unspecified (principal); R06.02 Shortness of breath; I70.209 Unspecified atherosclerosis of native arteries of extremities, unspecified extremity
CPT/HCPCS: A9502; J2785

== ENCOUNTER 2019-02-24 10:34 | Observation (INO) | payer MEDICARE ==
[~2019-02-24] VITALS: Ht 172.7 cm; Wt 62.6 kg
--- NOTE | 2019-02-24 10:40 | NUR ---
PATIENT TO ROOM VIA WHEELCHAIR AND PHYSICIAN NOTIFIED OF PATIENT STATUS
--- NOTE | 2019-02-24 10:55 | NUR ---
IN TO START IV. 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 TOLERATED IV START WELL.
--- NOTE | 2019-02-24 11:10 | NUR ---
PT MEDICAITED FOR COMPLAINTS OF 4/10 CHEST PAIN. PT STATES ITS NOT HIS PAIN HE IS WORRIED ABOUT ITS HIS SHORTNESS OF BREATH, RESP PATTERN NON-LABORED, 02 SATS 100%. TALKING NON-STOP TO STAFF/FAMILY AT BEDSIDE.
--- NOTE | 2019-02-24 11:15 | NUR ---
PT UNSURE OF MEDICATIONS AND DOSAGES. PATIENT VERY CONCERED ABOUT HIS ZOLOFT THAT HE DID NOT TAKE THIS MORNING.
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
[2019-02-24 11:20] LABS: HEMATOCRIT 35.6 % (39.0-50.0); HEMOGLOBIN 11.7 g/dl (14.0-18.0); IMMATURE GRANULOCYTES 0.3 % (0.0-5.0); MEAN CELL VOLUME 85.4 fL CALC (80.0-100.0); MEAN CORPUSCULAR HGB 28.1 pG CALC (26.0-32.0); MEAN CORPUSCULAR HGB CONC 32.9 g/L CALC (32.0-36.0); NEUT# 4.65 thou/uL (1.82-7.42); RED BLOOD COUNT 4.17 mill/uL (4.70-6.10); RED CELL DISTRI WIDTH 16.4 % (11.5-15.5)
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
--- NOTE | 2019-02-24 11:20 | NUR ---
PT YELLING OUT TO NURSES STATION, BELLE, CHARGE NURSE IN TO SPEAK WITH PATIENT REGARDING BEHAVIOR.
[2019-02-24 11:46] LABS: ALBUMIN 3.9 g/dL (3.2-5.0); ALKALINE PHOSPHATASE 108 u/l (38-126); ANION GAP 14 (6-22 (CALC)); BILIRUBIN, TOTAL 0.7 mg/dL (0.0-1.4); BUN 19 mg/dL (8-23); BUN/CREATININE RATIO 25 (12-20 (CALC)); CARBON DIOXIDE 26 mmol/l (22-30); CHLORIDE 104 mmol/l (95-108); CREATININE 0.8 mg/dL (0.7-1.3); GFR > 60 ML/MIN (>=60 (CALC)); GFR FOR AFR.AMER. > 60 ML/MIN (>=60 (CALC)); POTASSIUM 3.7 mmol/l (3.5-5.1); SGOT/AST 20 u/l (19-48); SODIUM 140 mmol/l (137-146); TOTAL PROTEIN 6.6 g/dL (6.3-8.2)
[2019-02-24 11:58] LABS: MYOGLOBIN 60 ng/mL (0 - 121)
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
--- NOTE | 2019-02-24 12:39 | NUR ---
NURSING TANK CLEANING SUPERVISOR AT BEDSIDE.
--- NOTE | 2019-02-24 13:03 | NUR ---
PT UP TO BSC, [place] IN TO ASSIST.
--- NOTE | 2019-02-24 13:10 | NUR ---
REPORT GIVEN TO MARGARITO
--- NOTE | 2019-02-24 13:18 | NUR ---
PATIENT REQUESTS TO FINISH MEAL TRAY PRIOR TO TRANSPORT TO [facility]
--- NOTE | 2019-02-24 13:39 | NUR ---
PATIENT TRANSPORTED TO [facility]
[2019-02-24 14:05] VITALS: BP 146/68
--- NOTE | 2019-02-24 15:37 | NUR ---
REPORT RECEIVED FROM BELLE PT ARRIVED ON UNIT VIA W/C @ 5294 AND SETTLED IN BED. ALERT AND ORIENTED X 3, NO C/O PAIN, ORIENTED TO ROOM AND CALL MONTOYA. VERY TALKATIVE AND REQUESTING ZOLOFT AT THIS TIME, ADVISED MED REC NEEDS UPDATING BUT COULDN'T GIVE LIST OF CURRENT MEDICATIONS. ADVISED TO HAVE SPOUSE BRING IN MEDS BUT SPOUSE STATED SHE DOES NOT KNOW WHERE THEY ARE NEITHER DOES SHE KNOW WHAT HE IS TAKING, PT ALSO REPORTED HE HAS VERY MANY MEDS AND SPOUSE WOULDN'T KNOW WHAT TO BRING IN. BOTH WERE ADVISED TO BRING ALL MEDICATIONS INCLUDING EMPTY BOTTLES IF ANY BUT PATIENT INSISTED TO CONTACT [place] TO FURNISH MED LIST TO US. PHARMACIST HAS BEEN IN ROOM TRYING TO OBTAIN INFORMATION FROM APPROXIMATELY 1430 UNTIL THIS PRESENT TIME OF 1544.
[2019-02-24] MEDS ORDERED: METFORMIN HCL500 M1 PO (15:55)
[2019-02-24] MEDS ORDERED: ATORVASTATIN CA40 MG PO (15:55)
[2019-02-24] MEDS ORDERED: SERTRALINE50 MG PO (15:58)
[2019-02-24] MEDS ORDERED: TACTINAL325 MG PO (15:59)
[2019-02-24] MEDS ORDERED: LATANOPROST0.005 % OU (16:00)
[2019-02-24 16:01] VITALS: BP 161/78
[2019-02-24] MEDS ORDERED: B-125000 MC2 PO (16:03)
[2019-02-24] MEDS ORDERED: BRIMONIDINE0.2 % OS (16:03)
[2019-02-24] MEDS ORDERED: PROAIR HFA108 MCG/AC IN (16:04)
[2019-02-24] MEDS ORDERED: NOVOLOG MIX SC (16:05)
[2019-02-24] MEDS ORDERED: ADULT ASPIRIN E81 MG PO (16:06)
[2019-02-24] MEDS ORDERED: LOSARTAN POT50 MG PO (16:06)
[2019-02-24] MEDS ORDERED: NEURONTIN800 MG PO (16:07)
[2019-02-24] MEDS ORDERED: MULTIVITAMI9 PO (16:07)
[2019-02-24] MEDS ORDERED: METHOCARBAM500 MG PO (16:08)
[2019-02-24 16:27] LABS: URINE BILIRUBIN - DIPSTICK NEGATIVE (NEGATIVE); URINE BLOOD DIPSTICK NEGATIVE (NEGATIVE); URINE COLOR YELLOW; URINE GLUCOSE - DIPSTICK 250 mg/dL (NEGATIVE); URINE KETONE NEGATIVE (NEGATIVE); URINE LEUK ESTERASE NEGATIVE (NEGATIVE); URINE NITRITE - DIPSTICK NEGATIVE (Negative); URINE PH 5.5 (4.5-8.0); URINE PROTEIN - DIPSTICK NEGATIVE (NEG-TRACE); URINE SPECIFIC GRAVITY <=1.005; URINE UROBILINOGEN - DIPSTICK 0.2 E.U./dL (0.2)
--- NOTE | 2019-02-24 19:00 | NUR ---
BEDSIDE REPORT RECEIVED FROM DAMON PIMENTEL. PT RESTING IN BED SEMI FOWLERS; ALERT AND ORIENTED; TALKATIVE. DENIES PAIN CURRENTLY. RESPIRATIONS EVEN AND UNLABORED ON ROOM AIR. PLAN OF CARE REVIEWED. PT [id number] TO VERBALIZE CONCERNS. STATES UNDERSTANDING. SAFETY MEASURES IN PLACE. CALL LIGHT WITHIN REACH.
[2019-02-24 19:25] VITALS: BP 146/80
--- NOTE | 2019-02-24 19:56 | NUR ---
PT REPORTS 4/10 RIGHT SIDED CHEST PAIN THAT LASTED 2 MINUTES THEN SUBSIDED. BLOOD PRESSURE ELEVATED DURING THIS TIME. TYLENOL GIVEN, EDUCATED ON RELAXATION TECHNIQUES. F/U BP 163/80 HR 61. WILL CONTINUE TO MONITOR.
[2019-02-24 20:01] VITALS: BP 163/80
--- NOTE | 2019-02-24 23:48 | NUR ---
PT REQUESTING HIS HOME MEDICATION GABAPENTIN TO HELP HIM SLEEP AND STATES THAT HE WILL BE UP ALL NIGHT IF HE DOES NOT TAKE IT. VS STABLE. IV SITE APPEARS HEALTHY AND FLUSHES. INDEPENDENT IN ROOM; USES CALL LIGHT PRN FOR ASSISTANCE. DENIES PAIN CURRENTLY, ONLY RESTLESSNESS. RESPIRATIONS EVEN AND UNLABORED ON ROOM AIR. SAFETY MEASURES IN PLACE. CALL LIGHT WITHIN REACH.
[2019-02-25 00:08] VITALS: BP 132/64
--- NOTE | 2019-02-25 00:14 | NUR ---
GABAPENTIN ADMINISTERED. PT REQUESTS THAT STAFF AWAKEN HIM BY TAPPING HIS FOOT HE HAS PTSD AND SOMETIMES IS COMBATIVE UPON WAKENING.
--- NOTE | 2019-02-25 00:16 | NUR ---
LAB AT BEDSIDE FOR TROPONIN.
--- NOTE | 2019-02-25 03:25 | NUR ---
PT AWAKE TO USE URINAL. NOTIFIES NURSE THAT HE THINKS THAT HIS BLOOD SUGAR IS TOO LOW; FINGER STICK 96. SNACK PROVIDED AND TYLENOL GIVEN FOR HEADAHCE 10/30.
[2019-02-25 04:37] VITALS: BP 173/81
[2019-02-25 06:15] LABS: HEMATOCRIT 37.3 % (39.0-50.0); HEMOGLOBIN 12.1 g/dl (14.0-18.0); IMMATURE GRANULOCYTES 0.1 % (0.0-5.0); MEAN CELL VOLUME 86.7 fL CALC (80.0-100.0); MEAN CORPUSCULAR HGB 28.1 pG CALC (26.0-32.0); MEAN CORPUSCULAR HGB CONC 32.4 g/L CALC (32.0-36.0); NEUT# 3.94 thou/uL (1.82-7.42); RED BLOOD COUNT 4.3 mill/uL (4.70-6.10); RED CELL DISTRI WIDTH 16.5 % (11.5-15.5)
[2019-02-25 06:27] LABS: ALBUMIN 3.8 g/dL (3.2-5.0); ALKALINE PHOSPHATASE 109 u/l (38-126); AMYLASE 73 u/l (30-110); ANION GAP 14 (6-22 (CALC)); BILIRUBIN, TOTAL 0.6 mg/dL (0.0-1.4); BUN 18 mg/dL (8-23); BUN/CREATININE RATIO 28 (12-20 (CALC)); CARBON DIOXIDE 24 mmol/l (22-30); CHLORIDE 109 mmol/l (95-108); CREATININE 0.6 mg/dL (0.7-1.3); GFR > 60 ML/MIN (>=60 (CALC)); GFR FOR AFR.AMER. > 60 ML/MIN (>=60 (CALC)); LIPASE 98 u/l (23-300); MAGNESIUM 1.9 mg/dL (1.6-2.3); SGOT/AST 23 u/l (19-48); SODIUM 142 mmol/l (137-146); TOTAL PROTEIN 6.5 g/dL (6.3-8.2)
[2019-02-25 06:30] LABS: POTASSIUM 4.5 mmol/l (3.5-5.1)
[2019-02-25 06:53] VITALS: BP 146/82
--- NOTE | 2019-02-25 07:35 | NUR ---
ASSESSMENT IS COMPLTED: IV SITE IS FREE FROM REDNESS OR EDEMA. BREATH SOUNDS ARE CLEAR,BILATERALLY. HR IS REG, PULSES ARE STRONG X4, ABD IS SOFT WITH ACTIVE BS. TELE MONITOR IN PLACE. CONTINUE TO OBSERVE AND MONITOR.
[2019-02-25 09:17] LABS: CHOLESTEROL HDL RATIO 4.1 (<4.4 (CALC))
[2019-02-25 11:06] VITALS: BP 140/68
--- NOTE | 2019-02-25 12:00 | NUR ---
PT IS RELAXING IN BED WITH NO DISTRESS NOTED. HAS BEEN AMBULATING IN THE [place]
--- NOTE | 2019-02-25 13:45 | NUR ---
CALLED PT'S AND EXPLAINED THAT PT WOULD BE DISCHARGED IN 15 MINUTES. VERBALIZED UNDERSTANDING.,
--- NOTE | 2019-02-25 14:30 | NUR ---
IV SITE DISCONTINUED CATHETER INTACT. NO REDNESS OR EDEMA. DISCHARGE INSTRUCTIONS GIVEN AND VERBALIZED UNDERSTANDING. FAMILY AWARE AND ON HER WAY,
== END 2019-02-25 14:45 | disposition home or self-care (01) ==
LOC: ED 10:34 → ED-I 11:06 → ED 12:28 → MS2 12:29
PROVIDERS: Emergency Medicine; Nurse Practitioner Family; ADMIT Internal Medicine Nephrology; ATTEND Internal Medicine Nephrology
DX: R07.89 Other chest pain (principal); E11.51 Type 2 diabetes mellitus with diabetic peripheral angiopathy without gangrene; I10 Essential (primary) hypertension; I25.10 Atherosclerotic heart disease of native coronary artery without angina pectoris; D64.9 Anemia, unspecified; J44.9 Chronic obstructive pulmonary disease, unspecified; E11.65 Type 2 diabetes mellitus with hyperglycemia; E11.40 Type 2 diabetes mellitus with diabetic neuropathy, unspecified; F41.1 Generalized anxiety disorder; F43.10 Post-traumatic stress disorder, unspecified; I25.2 Old myocardial infarction; M19.90 Unspecified osteoarthritis, unspecified site; T38.3X6A Underdosing of insulin and oral hypoglycemic [antidiabetic] drugs, initial encounter; Z91.128 Patient's intentional underdosing of medication regimen for other reason; Z91.11 Patient's noncompliance with dietary regimen; Z79.4 Long term (current) use of insulin; Z95.5 Presence of coronary angioplasty implant and graft; Z86.73 Personal history of transient ischemic attack (TIA), and cerebral infarction without residual deficits
CPT/HCPCS: J1650

== ENCOUNTER 2019-04-27 10:52 | Emergency (ER) | payer OTHER, MEDICARE ==
[~2019-04-27] VITALS: Ht 172.7 cm; Wt 60.0 kg
[~2019-04-27 10:52] MED LIST changes: +ADULT ASPIRIN E81 MG PO; +LATANOPROST0.005 % OU; +METFORMIN HCL500 M1 PO; +MULTIVITAMI9 PO; +NEURONTIN800 MG PO; +PROAIR HFA108 MCG/AC IN; +TACTINAL325 MG PO
[2019-04-27] MEDS ORDERED: IRON (FERROUS S50 MG PO (11:20)
[2019-04-27] MEDS ORDERED: BUSPIRONE5 MG PO (11:21)
[2019-04-27 11:36] LABS: HEMATOCRIT 37.4 % (39.0-50.0); HEMOGLOBIN 12.8 g/dl (14.0-18.0); IMMATURE GRANULOCYTES 0.4 % (0.0-5.0); MEAN CELL VOLUME 84.8 fL CALC (80.0-100.0); MEAN CORPUSCULAR HGB CONC 34.2 g/L CALC (32.0-36.0); NEUT# 7.68 thou/uL (1.82-7.42); RED BLOOD COUNT 4.41 mill/uL (4.70-6.10); RED CELL DISTRI WIDTH 14.8 % (11.5-15.5)
[2019-04-27 12:17] LABS: ALKALINE PHOSPHATASE 160 u/l (38-126); ANION GAP 15 (6-22 (CALC)); BILIRUBIN, TOTAL 0.8 mg/dL (0.0-1.4); BUN 20 mg/dL (8-23); BUN/CREATININE RATIO 22 (12-20 (CALC)); CARBON DIOXIDE 26 mmol/l (22-30); CHLORIDE 101 mmol/l (95-108); CREATININE 0.9 mg/dL (0.7-1.3); GFR > 60 ML/MIN (>=60 (CALC)); GFR FOR AFR.AMER. > 60 ML/MIN (>=60 (CALC)); LIPASE 47 u/l (23-300); POTASSIUM 4.6 mmol/l (3.5-5.1); SGOT/AST 31 u/l (19-48); SODIUM 137 mmol/l (137-146); TOTAL PROTEIN 7.4 g/dL (6.3-8.2)
[2019-04-27 15:00] LABS: URINE BILIRUBIN - DIPSTICK NEGATIVE (NEGATIVE); URINE BLOOD DIPSTICK NEGATIVE (NEGATIVE); URINE COLOR YELLOW; URINE GLUCOSE - DIPSTICK NEGATIVE (NEGATIVE); URINE KETONE NEGATIVE (NEGATIVE); URINE LEUK ESTERASE NEGATIVE (NEGATIVE); URINE NITRITE - DIPSTICK NEGATIVE (Negative); URINE PROTEIN - DIPSTICK NEGATIVE (NEG-TRACE); URINE UROBILINOGEN - DIPSTICK 0.2 E.U./dL (0.2)
[2019-04-27 15:02] VITALS: BP 141/70
== END 2019-04-27 15:20 | disposition home or self-care (01) | DRG 948 ==
LOC: ED 10:52
PROVIDERS: Family Medicine
DX: R53.1 Weakness (principal); R06.02 Shortness of breath; E11.51 Type 2 diabetes mellitus with diabetic peripheral angiopathy without gangrene; E11.621 Type 2 diabetes mellitus with foot ulcer; L97.419 Non-pressure chronic ulcer of right heel and midfoot with unspecified severity; L84 Corns and callosities; J44.9 Chronic obstructive pulmonary disease, unspecified; I10 Essential (primary) hypertension; Z86.73 Personal history of transient ischemic attack (TIA), and cerebral infarction without residual deficits; Z79.4 Long term (current) use of insulin
CPT/HCPCS: Q9967

== ENCOUNTER 2019-05-08 09:01 | Observation (INO) | payer OTHER, MEDICARE ==
[~2019-05-08] VITALS: Ht 172.7 cm; Wt 126.5 kg
[~2019-05-08 09:01] MED LIST changes: +BUSPIRONE5 MG PO; +IRON (FERROUS S50 MG PO
[2019-05-08 10:04] LABS: IMMATURE GRANULOCYTES 0.5 % (0.0-5.0); MEAN CORPUSCULAR HGB 29.3 pG CALC (26.0-32.0); MEAN CORPUSCULAR HGB CONC 33.3 g/L CALC (32.0-36.0); NEUT# 12.37 thou/uL (1.82-7.42); RED BLOOD COUNT 3.75 mill/uL (4.70-6.10); RED CELL DISTRI WIDTH 13.8 % (11.5-15.5)
[2019-05-08 10:22] LABS: ANION GAP 15 (6-22 (CALC)); BUN 15 mg/dL (8-23); BUN/CREATININE RATIO 17 (12-20 (CALC)); CARBON DIOXIDE 23 mmol/l (22-30); CHLORIDE 103 mmol/l (95-108); CREATININE 0.9 mg/dL (0.7-1.3); GFR > 60 ML/MIN (>=60 (CALC)); GFR FOR AFR.AMER. > 60 ML/MIN (>=60 (CALC)); POTASSIUM 4.3 mmol/l (3.5-5.1); SODIUM 137 mmol/l (137-146)
[2019-05-08 12:17] LABS: URINE BILIRUBIN - DIPSTICK NEGATIVE (NEGATIVE); URINE BLOOD DIPSTICK NEGATIVE (NEGATIVE); URINE COLOR YELLOW; URINE GLUCOSE - DIPSTICK >=1000 mg/dL (NEGATIVE); URINE KETONE NEGATIVE (NEGATIVE); URINE LEUK ESTERASE NEGATIVE (NEGATIVE); URINE NITRITE - DIPSTICK NEGATIVE (Negative); URINE PH 7.5 (4.5-8.0); URINE PROTEIN - DIPSTICK NEGATIVE (NEG-TRACE)
[2019-05-08] MEDS ORDERED: SMZ-TMP DS1 TAB PO (13:15)
[2019-05-08] MEDS ORDERED: PEPTO BISMOL262 MG PO (13:16)
[2019-05-08 13:44] VITALS: BP 127/73
[2019-05-08 15:29] VITALS: BP 157/71
[2019-05-08 19:14] VITALS: BP 133/75
[2019-05-08 23:45] VITALS: BP 155/78
[2019-05-09 04:00] VITALS: BP 141/73
[2019-05-09 06:48] LABS: HEMATOCRIT 35.3 % (39.0-50.0); HEMOGLOBIN 11.5 g/dl (14.0-18.0); MEAN CELL VOLUME 88.3 fL CALC (80.0-100.0); MEAN CORPUSCULAR HGB 28.8 pG CALC (26.0-32.0); MEAN CORPUSCULAR HGB CONC 32.6 g/L CALC (32.0-36.0); RED CELL DISTRI WIDTH 13.7 % (11.5-15.5)
[2019-05-09 08:35] VITALS: BP 138/63
== END 2019-05-09 13:16 | disposition home health service (06) | DRG 313 ==
LOC: ED 09:01 → ED-I 10:55 → ED 11:34 → MS2 11:35
PROVIDERS: Family Medicine; ADMIT Internal Medicine; ATTEND Internal Medicine
DX: R07.9 Chest pain, unspecified (principal); E11.51 Type 2 diabetes mellitus with diabetic peripheral angiopathy without gangrene; E11.621 Type 2 diabetes mellitus with foot ulcer; L97.519 Non-pressure chronic ulcer of other part of right foot with unspecified severity; J44.9 Chronic obstructive pulmonary disease, unspecified; I10 Essential (primary) hypertension; E11.40 Type 2 diabetes mellitus with diabetic neuropathy, unspecified; K27.9 Peptic ulcer, site unspecified, unspecified as acute or chronic, without hemorrhage or perforation; L84 Corns and callosities; F41.9 Anxiety disorder, unspecified; F43.10 Post-traumatic stress disorder, unspecified; B96.4 Proteus (mirabilis) (morganii) as the cause of diseases classified elsewhere; Z79.4 Long term (current) use of insulin; Z86.73 Personal history of transient ischemic attack (TIA), and cerebral infarction without residual deficits; Z87.891 Personal history of nicotine dependence

== ENCOUNTER 2019-05-22 11:47 | Emergency (ER) | payer OTHER, MEDICARE ==
[~2019-05-22] VITALS: Ht 172.7 cm; Wt 50.0 kg
[~2019-05-22 11:47] MED LIST changes: +PEPTO BISMOL262 MG PO; +SMZ-TMP DS1 TAB PO
[2019-05-22] MEDS ORDERED: ZYRTEC10 MG PO (12:01)
[2019-05-22 12:21] LABS: BUN 35 mg/dL (8-23); BUN/CREATININE RATIO 28 (12-20 (CALC)); CARBON DIOXIDE 20 mmol/l (22-30); CHLORIDE 99 mmol/l (95-108); CREATININE 1.2 mg/dL (0.7-1.3); GFR 60 ML/MIN (>=60 (CALC)); GFR FOR AFR.AMER. > 60 ML/MIN (>=60 (CALC)); SODIUM 135 mmol/l (137-146)
[2019-05-22 12:52] LABS: ANION GAP 21 (6-22 (CALC)); POTASSIUM 5.4 mmol/l (3.5-5.1)
[2019-05-22 13:15] VITALS: BP 111/64
== END 2019-05-22 13:19 | disposition home or self-care (01) | DRG 316 ==
LOC: ED 11:47
PROVIDERS: Family Medicine
DX: I95.9 Hypotension, unspecified (principal); I10 Essential (primary) hypertension; E11.51 Type 2 diabetes mellitus with diabetic peripheral angiopathy without gangrene; J44.9 Chronic obstructive pulmonary disease, unspecified; Z86.73 Personal history of transient ischemic attack (TIA), and cerebral infarction without residual deficits

== ENCOUNTER 2019-05-26 07:21 | Day surgery (SDC) | payer OTHER, MEDICARE ==
[~2019-05-26] VITALS: Ht 172.7 cm; Wt 59.9 kg
[~2019-05-26 07:21] MED LIST changes: +ZYRTEC10 MG PO
[2019-05-26 10:29] VITALS: BP 132/70
== END 2019-05-26 10:45 | disposition home or self-care (01) | DRG 391 ==
LOC: ENDO 07:21 → ORM 10:45
PROVIDERS: ATTEND Internal Medicine Gastroenterology
PROC: 0D758ZZ Dilation of Esophagus, Via Natural or Artificial Opening Endoscopic (ICD-10-PCS; principal; 2019-05-26)
PROC: 0DB48ZX Excision of Esophagogastric Junction, Via Natural or Artificial Opening Endoscopic, Diagnostic (ICD-10-PCS; 2019-05-26)
PROC: 0DB58ZX Excision of Esophagus, Via Natural or Artificial Opening Endoscopic, Diagnostic (ICD-10-PCS; 2019-05-26)
DX: K22.8 Other specified diseases of esophagus (principal); K29.71 Gastritis, unspecified, with bleeding; K44.9 Diaphragmatic hernia without obstruction or gangrene; D64.9 Anemia, unspecified; I10 Essential (primary) hypertension; E11.9 Type 2 diabetes mellitus without complications; I25.10 Atherosclerotic heart disease of native coronary artery without angina pectoris; J44.9 Chronic obstructive pulmonary disease, unspecified; I25.2 Old myocardial infarction; Z86.73 Personal history of transient ischemic attack (TIA), and cerebral infarction without residual deficits; Z86.010 Personal history of colon polyps

== ENCOUNTER 2019-07-11 18:06 | Emergency (ER) | payer OTHER, MEDICARE ==
[2019-07-12 04:51] LABS: ALBUMIN 4.2 g/dL (3.2-5.0); ALKALINE PHOSPHATASE 128 u/l (38-126); ANION GAP 17 (6-22 (CALC)); BILIRUBIN, TOTAL 0.3 mg/dL (0.0-1.4); BUN 24 mg/dL (8-23); BUN/CREATININE RATIO 27 (12-20 (CALC)); CARBON DIOXIDE 24 mmol/l (22-30); CHLORIDE 102 mmol/l (95-108); CREATININE 0.9 mg/dL (0.7-1.3); GFR > 60 ML/MIN (>=60 (CALC)); GFR FOR AFR.AMER. > 60 ML/MIN (>=60 (CALC)); LIPASE 200 u/l (23-300); POTASSIUM 4.8 mmol/l (3.5-5.1); SGOT/AST 33 u/l (19-48); SODIUM 137 mmol/l (137-146); TOTAL PROTEIN 8.1 g/dL (6.3-8.2)
[2019-07-12 05:25] LABS: HEMATOCRIT 35.7 % (39.0-50.0); HEMOGLOBIN 11.4 g/dl (14.0-18.0); IMMATURE GRANULOCYTES 0.2 % (0.0-5.0); MEAN CELL VOLUME 91.3 fL CALC (80.0-100.0); MEAN CORPUSCULAR HGB 29.2 pG CALC (26.0-32.0); MEAN CORPUSCULAR HGB CONC 31.9 g/L CALC (32.0-36.0); NEUT# 5.08 thou/uL (1.82-7.42); RED BLOOD COUNT 3.91 mill/uL (4.70-6.10); RED CELL DISTRI WIDTH 14.7 % (11.5-15.5)
[2019-07-12 05:49] LABS: URINE BILIRUBIN - DIPSTICK NEGATIVE (NEGATIVE); URINE COLOR YELLOW; URINE GLUCOSE - DIPSTICK NEGATIVE (NEGATIVE); URINE KETONE Negative (NEGATIVE); URINE NITRITE - DIPSTICK NEGATIVE (Negative); URINE PH 6.5 (4.5-8.0); URINE PROTEIN - DIPSTICK NEGATIVE (NEG-TRACE); URINE UROBILINOGEN - DIPSTICK 0.2 E.U./dL (0.2)
[2019-07-12 05:50] LABS: URINE BLOOD DIPSTICK NEGATIVE (NEGATIVE); URINE LEUK ESTERASE NEGATIVE (NEGATIVE)
== END 2019-07-11 22:40 | disposition home or self-care (01) | DRG 392 ==
LOC: ED 18:37
PROVIDERS: Family Medicine
DX: K52.9 Noninfective gastroenteritis and colitis, unspecified (principal)
CPT/HCPCS: Q9967

== ENCOUNTER 2019-08-29 | Emergency (ER) | payer OTHER, MEDICARE ==
[2019-08-29 10:28] LABS: HEMATOCRIT 34.2 % (39.0-50.0); HEMOGLOBIN 11.2 g/dl (14.0-18.0); IMMATURE GRANULOCYTES 0.3 % (0.0-5.0); MEAN CORPUSCULAR HGB 29.5 pG CALC (26.0-32.0); MEAN CORPUSCULAR HGB CONC 32.7 g/L CALC (32.0-36.0); NEUT# 8.83 thou/uL (1.82-7.42); RED BLOOD COUNT 3.8 mill/uL (4.70-6.10); RED CELL DISTRI WIDTH 13.7 % (11.5-15.5)
[2019-08-29 10:48] LABS: ANION GAP 12 (6-22 (CALC)); BUN 20 mg/dL (8-23); BUN/CREATININE RATIO 26 (12-20 (CALC)); CARBON DIOXIDE 27 mmol/l (22-30); CHLORIDE 99 mmol/l (95-108); CREATININE 0.8 mg/dL (0.7-1.3); GFR > 60 ML/MIN (>=60 (CALC)); GFR FOR AFR.AMER. > 60 ML/MIN (>=60 (CALC)); POTASSIUM 3.9 mmol/l (3.5-5.1); SODIUM 134 mmol/l (137-146)
== END 2019-08-29 12:10 | disposition left against medical advice (07) | DRG 313 ==
PROVIDERS: Family Medicine
DX: R07.9 Chest pain, unspecified (principal); I10 Essential (primary) hypertension; E11.9 Type 2 diabetes mellitus without complications; J44.9 Chronic obstructive pulmonary disease, unspecified; Z95.5 Presence of coronary angioplasty implant and graft; Z86.73 Personal history of transient ischemic attack (TIA), and cerebral infarction without residual deficits; Z79.4 Long term (current) use of insulin; Z91.19 Patient's noncompliance with other medical treatment and regimen

== ENCOUNTER 2019-08-31 | Observation (INO) | payer MEDICARE, OTHER ==
--- NOTE | 2019-08-31 10:58 | NUR ---
PT TO ROOM WITH USE OF CANE WITH A LIMPING GAIT.
--- NOTE | 2019-08-31 11:38 | NUR ---
Pt. moved to room #6 for higher level of care. Report given to Sterling Sterling.
[2019-08-31 12:11] LABS: HEMATOCRIT 38.9 % (39.0-50.0); HEMOGLOBIN 12.4 g/dl (14.0-18.0); IMMATURE GRANULOCYTES 0.2 % (0.0-5.0); MEAN CORPUSCULAR HGB 29.3 pG CALC (26.0-32.0); MEAN CORPUSCULAR HGB CONC 31.9 g/L CALC (32.0-36.0); NEUT# 6.45 thou/uL (1.82-7.42); RED BLOOD COUNT 4.23 mill/uL (4.70-6.10); RED CELL DISTRI WIDTH 13.8 % (11.5-15.5)
--- NOTE | 2019-08-31 12:26 | NUR ---
STARTED NEW IV SITE IN THE LEFT FORARM WITH 22 G. FLUIDS AND ANTIBIOTICS INITIATED AND FLOWING WITHOUT ANY SWELLING AND PT DENIES PAIN. WILL CONTINUE TO MONITOR.
[2019-08-31 12:59] LABS: ALBUMIN 4.3 g/dL (3.2-5.0); ALKALINE PHOSPHATASE 132 u/l (38-126); ANION GAP 13 (6-22 (CALC)); BILIRUBIN, TOTAL 0.4 mg/dL (0.0-1.4); BUN 16 mg/dL (8-23); BUN/CREATININE RATIO 23 (12-20 (CALC)); CARBON DIOXIDE 26 mmol/l (22-30); CHLORIDE 102 mmol/l (95-108); CREATININE 0.7 mg/dL (0.7-1.3); GFR > 60 ML/MIN (>=60 (CALC)); GFR FOR AFR.AMER. > 60 ML/MIN (>=60 (CALC)); POTASSIUM 3.6 mmol/l (3.5-5.1); SGOT/AST 35 u/l (19-48); SODIUM 137 mmol/l (137-146); TOTAL PROTEIN 7.9 g/dL (6.3-8.2)
--- NOTE | 2019-08-31 13:09 | NUR ---
PT PRESENTS WITH DEFORMATION OF SECOND DIGIT TOE ON THE RIGHT FOOT. PT STATES HAVING A BLISTER ON THAT TOE FOR A WEEK AND THAT IT FINALLY BURST TODAY. THE SKIN AND FINGERNAIL HAS MASERATED OFF OF THE TOE. IT IS STILL ATTACHED BUT HANGING OFF. BED OF TOE IS WHITE WITH A HOLE IN THE MIDDLE OF ABOUT 1 CM FROM THE BLISTER. CAP REFILL TO THE SURROUNDING TISSUE IS 4 SEC. WILL CONTINUE TO MONITOR.
--- NOTE | 2019-08-31 13:51 | NUR ---
PT REQUEST TO HAVE BLOOD SUGAR CHECKED TO SEE IF HE SHOULD EAT SOMETHING OR NOT. ACCUCHECK OBTAINED.
[2019-08-31 14:20] LABS: URINE BILIRUBIN - DIPSTICK NEGATIVE (NEGATIVE); URINE BLOOD DIPSTICK NEGATIVE (NEGATIVE); URINE COLOR YELLOW; URINE GLUCOSE - DIPSTICK 100 mg/dL (NEGATIVE); URINE KETONE NEGATIVE (NEGATIVE); URINE LEUK ESTERASE NEGATIVE (NEGATIVE); URINE NITRITE - DIPSTICK NEGATIVE (Negative); URINE PROTEIN - DIPSTICK NEGATIVE (NEG-TRACE); URINE SPECIFIC GRAVITY <=1.005; URINE UROBILINOGEN - DIPSTICK 0.2 E.U./dL (0.2)
--- NOTE | 2019-08-31 15:18 | NUR ---
Vancomycin consult Age: 73 yo Serum creatinine: 0.7 mg/dL Height: 68.0 Inches Weight (kg): 64.4 IBW (kg): 68.40 Dosing wt(kg): 64.4 Estimated Creatinine clearance (ml/min): 86.9 Vd (liters): 45.1 (factor used: 0.7 L/kg) Hardeep (hr-1): 0.077 Half life (hrs): 9.00 Vancomycin 1000 mg q 12 hrs starting at 2200 with an expected Cpeak of 34 mcg/ml and an expected Ctrough of 16 mcg/ml trough on 09/01/19 at 2130
--- NOTE | 2019-08-31 15:20 | NUR ---
CALLED TO GIVE REPORT TO MED SURG, OIL AND GAS WELL TREATMENT OPERATOR STATED THAT NURSE WAS BUSY AND THAT HE WILL CALL BACK SOON HE IS AVAILIABLE.
--- NOTE | 2019-08-31 15:31 | NUR ---
CHLOE CALLED BACK. REPORT VIVIANE
--- NOTE | 2019-08-31 15:40 | NUR ---
PT TRANSPORTED TO MED SURG, STABLE AND IN NO DISTRESS WITH ALL BELONGINGS
[2019-08-31 15:58] VITALS: BP 170/72
--- NOTE | 2019-08-31 19:28 | NUR ---
PT ALERT AND ORIENTED X3. ABLE TO MAKE NEEDS KNOWN. NO C/O PAIN, NO S/S OF SOB, NO S/S OF DISTRESS. IV TO LEFT FOREARM PATENT. PT TOLERATED IV ABT WITH NO S/S OF ADVERSE REACTIONS. UNLABORED BREATHS ON ROOM AIR. PT EDUCATED TO CONTACT STAFF FOR ASSISTANCE WHEN GETTING OUT OF BED. CALL MONTOYA IN PLACE. BED IN LOWEST POSITION.
[2019-08-31 19:46] VITALS: BP 157/68
--- NOTE | 2019-08-31 21:10 | NUR ---
PT MEDICATED ORDERS PROVIDE. ASSESSMENT COMPLETED AT THIS TIME. IV ANTIBIOTIC THERAPY ADMINISTERED AT THIS T TIME. PT SELF AMBULATED TO RESTROOM AND BACK TO BED. DENIES ANY OTHER NEEDS AT THIS TIME. CALL LIGHT W/INR EACH.
--- NOTE | 2019-08-31 23:15 | NUR ---
PT MEDICATED ORDERS PROVIDE. DENIES ANY OTHER NEEDS AT THIS TIME. PT IS ASKING FOR COFFEE AND BABY WIPES. WILL FOLLOW-UP AND PROVIDE.
--- NOTE | 2019-09-01 00:15 | NUR ---
PT PROVIDED COFFEE AT THIS TIME PER REQUEST. BABY WIPES PROVIDED. PT DENIES NEED FOR ASSISTANCE FURTHER. CALL LIGHT AT SIDE AND PT ENCOURAGED TO CALL NEEDS ARISE.
[2019-09-01 03:46] VITALS: BP 113/69
--- NOTE | 2019-09-01 04:23 | NUR ---
PT MEDICATED W/IV ANTIBIOTIC THERAPY AT THIS TIME. PT ASKING FOR COFFEE AND ROOM TURNED WARMER FOR COMFORT/PROVIDED. PT LEFT WATCHING TV.
--- NOTE | 2019-09-01 04:48 | NUR ---
PT ASKED TO HAVE HIS SUGAR CHECKED VIA ACCU-CHECK/67 AT THIS TIME. SUGARY SNACKS AND PEANUT BUTTER ANC CRACKERS PROVIDED/JUICE. WILL REEVALUATE BS. PT ASKED FOR HA1C TO BE CHECKED WHEN HIS BLOOD WORK IS DRAWN FOR MORNING LABS.
[2019-09-01 05:46] LABS: HEMATOCRIT 36.1 % (39.0-50.0); HEMOGLOBIN 11.4 g/dl (14.0-18.0); IMMATURE GRANULOCYTES 0.2 % (0.0-5.0); MEAN CELL VOLUME 93.5 fL CALC (80.0-100.0); MEAN CORPUSCULAR HGB 29.5 pG CALC (26.0-32.0); MEAN CORPUSCULAR HGB CONC 31.6 g/L CALC (32.0-36.0); NEUT# 4.92 thou/uL (1.82-7.42); RED BLOOD COUNT 3.86 mill/uL (4.70-6.10); RED CELL DISTRI WIDTH 13.8 % (11.5-15.5)
[2019-09-01 06:00] LABS: ANION GAP 14 (6-22 (CALC)); BUN 13 mg/dL (8-23); BUN/CREATININE RATIO 18 (12-20 (CALC)); CARBON DIOXIDE 25 mmol/l (22-30); CHLORIDE 107 mmol/l (95-108); CREATININE 0.7 mg/dL (0.7-1.3); GFR > 60 ML/MIN (>=60 (CALC)); GFR FOR AFR.AMER. > 60 ML/MIN (>=60 (CALC)); MAGNESIUM 1.9 mg/dL (1.6-2.3); POTASSIUM 3.4 mmol/l (3.5-5.1); SODIUM 142 mmol/l (137-146)
[2019-09-01 09:00] VITALS: BP 171/71
[2019-09-01 15:48] VITALS: BP 160/75
== END 2019-09-01 16:10 | disposition left against medical advice (07) | DRG 638 ==
PROVIDERS: Nurse Practitioner Family; ADMIT Internal Medicine
DX: E11.621 Type 2 diabetes mellitus with foot ulcer (principal); L97.518 Non-pressure chronic ulcer of other part of right foot with other specified severity; L03.115 Cellulitis of right lower limb; E11.65 Type 2 diabetes mellitus with hyperglycemia; E11.51 Type 2 diabetes mellitus with diabetic peripheral angiopathy without gangrene; I10 Essential (primary) hypertension; F32.9 Major depressive disorder, single episode, unspecified; F43.10 Post-traumatic stress disorder, unspecified; F41.1 Generalized anxiety disorder; J43.9 Emphysema, unspecified; I25.2 Old myocardial infarction; Z72.89 Other problems related to lifestyle; Z79.4 Long term (current) use of insulin; Z89.411 Acquired absence of right great toe; Z87.891 Personal history of nicotine dependence; Z86.73 Personal history of transient ischemic attack (TIA), and cerebral infarction without residual deficits; Z95.5 Presence of coronary angioplasty implant and graft
CPT/HCPCS: G0378; J1650

== ENCOUNTER 2019-12-25 15:09 | Observation (INO) | payer OTHER, MEDICARE ==
[~2019-12-25] VITALS: Ht 172.7 cm; Wt 65.5 kg
--- NOTE | 2019-12-25 15:21 | NUR ---
PATEINT TO ROOM VIA WHEELCHAIR AND PHYSICIAN AT BEDSIDE FOR EVAL
[2019-12-25 15:38] LABS: HEMATOCRIT 35.6 % (39.0-50.0); HEMOGLOBIN 12.1 g/dl (14.0-18.0); IMMATURE GRANULOCYTES 0.1 % (0.0-5.0); MEAN CELL VOLUME 90.4 fL CALC (80.0-100.0); MEAN CORPUSCULAR HGB 30.7 pG CALC (26.0-32.0); NEUT# 4.69 thou/uL (1.82-7.42); RED BLOOD COUNT 3.94 mill/uL (4.70-6.10); RED CELL DISTRI WIDTH 13.2 % (11.5-15.5)
--- NOTE | 2019-12-25 15:45 | NUR ---
PT MEDICATED WITH ASA PER EDP ORDER. ADVISED OF PLAN OF CARE. DENIES ANY NEEDS. MEDICAL TECHNOLOGIST IN PLACE.
[2019-12-25 15:56] LABS: ALBUMIN 4.1 g/dL (3.2-5.0); ALKALINE PHOSPHATASE 81 u/l (38-126); BUN 17 mg/dL (8-23); BUN/CREATININE RATIO 18 (12-20 (CALC)); CARBON DIOXIDE 20 mmol/l (22-30); CHLORIDE 107 mmol/l (95-108); CREATININE 0.9 mg/dL (0.7-1.3); GFR > 60 ML/MIN (>=60 (CALC)); GFR FOR AFR.AMER. > 60 ML/MIN (>=60 (CALC)); SGOT/AST 32 u/l (19-48); SODIUM 137 mmol/l (137-146); TOTAL PROTEIN 7.1 g/dL (6.3-8.2)
[2019-12-25 16:08] LABS: ANION GAP 14 (6-22 (CALC)); BILIRUBIN, TOTAL 0.6 mg/dL (0.0-1.4); POTASSIUM 4.3 mmol/l (3.5-5.1)
--- NOTE | 2019-12-25 16:12 | NUR ---
MD AT BEDSIDE TO DISCUS RESULT AND PLAN FOR ADMISSION.
--- NOTE | 2019-12-25 16:36 | NUR ---
MEDICATION LIST REVIEWED WITH PATIENT.
--- NOTE | 2019-12-25 17:17 | NUR ---
PT AWARE OF PLAN FOR ADMISSION AND WAIT TIME. CALL MONTOYA WITHIN REACH.
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
--- NOTE | 2019-12-25 17:50 | NUR ---
Admission Note Report Given to: DAMON MAURICE Transported by: X Wheelchair Stretcher Transported with: X Nurse Transporter X Patent IV O2 X Branding Machine Tender Location: ICU X MS2 PT TO ROOM 261 IN STABLE CONDITION. CARE RELINQUISHED TO EMILIANA MAURICE.
[2019-12-25 17:52] VITALS: BP 192/81
--- NOTE | 2019-12-25 17:52 | NUR ---
ARRIVED TO MED/SURG ROOM 261 IN STABLE CONDITION VIA WHEELCHAIR ACCOMPANIED DAMON LEA;PT AMBULATED WITH A WEAK GAIT AND CANE TO STANDING SCALE AND BEDSIDE,WT AND VS OBTAINED;PT A&O X3,ORIENTED TO ROOM AND CALL LIGHT SYSTEM;PT REPORTS CHEST PAIN THIS MORNING AT 0800 THAT LASTED APPROX 10 MINS AND RESOLVED QUICKLY AFTER;PT DENIES ANY CURRENT CHEST PRESSURE OR PAIN,PAIN SCALE AND REPORTING EDUCATED;ASSESSMENT COMPLETED;RESPIRATIONS EVEN AND UNLABORED ON RA,CLEAR LUNG SOUNDS;ABDOMEN SOFT ON PALPATION AND ACTIVE IN ALL 4 QUADRANTS,LAST 12/25/19;WEAK PEDAL PULSES;GREAT RIGHT TOE AND FIFTH TOE NOTED TO BE AMPUTATED;SKIN INTACT;TELE MONITORING IN PLACE;#20G TO LEFT HAND FLUSHED AND PATENT,SITE APPEARS HEALTHY;ALLERGY AND FALL BAND APPLIED TO LEFT ARM;ACCUCHECK OBTAINED RESULTING IN 105;PT DENIES ANY ADDITIONAL NEEDS AT THIS TIME AND IS ENCOURAGED TO CALL FOR ASSISTANCE IF NEEDED;FALL PRECAUTIONS IN PLACE WITH BED IN THE LOWEST POSITION AND CALL LIGHT IN REACH;WILL CONTINUE TO MONITOR
[2019-12-25 19:01] VITALS: BP 195/83
--- NOTE | 2019-12-25 19:21 | NUR ---
NOTIFIED OF ELEVATED BP 195/83 HR 69. NEW ORDERS RECEIVED AT THIS TIME.PT ASYMPTOMATIC;WILL CONTINUE TO MONITOR
--- NOTE | 2019-12-25 20:00 | NUR ---
PATIENT RESTING IN BED AT THIS TIME-AWAKE ALERT AND ORIENTEDX3. PATIENT DENIES ANY CHEST PAIN OR SOB AT THIS TIME. BP-195/83, HR-69. MEDICATED WITH APRESOLINE 10MG IVP FOR HTN AND WITH XANAX 0.25MG PO FOR ANXIETY. PATIENT REQUESTING BSC AT BEDSIDE. TELE MONITOR IN PLACE. SALINE LOCK INTACT TO LEFT HAND. APPEARS HEALTHY AT THIS TIME. SAFETY PRECAUTIONS REINFORCED. CALL LIGHT IN REACH. WILL CONT TO MONITOR.
[2019-12-25 21:12] VITALS: BP 119/68
--- NOTE | 2019-12-25 21:15 | NUR ---
BP-119/58, HR-69. PATIENT RESTING IN BED-PATIENT ASKING FOR SHOWER-WILL ASSIST PATIENT WITH SHOWER GUANACO. SAFETY PRECAUTIONS REINFORCED. CALL LIGHT IN REACH. WILL CONT TO MONITOR.
--- NOTE | 2019-12-25 22:15 | NUR ---
PATIENT ASSIST WITH SHOWER PER PATIENT REQUEST. STATES THAT HE FEELS BETTER. CALL LIGHT IN REACH. WILL CONT TO MONITOR.
[2019-12-25 23:31] VITALS: BP 121/67
--- NOTE | 2019-12-26 00:52 | NUR ---
PATIENT C/O HEADACHE-4/10 ON PAIN SCALE. MEDICATED WITH TYLENOL 650MG PO FOR PAIN AND WITH SONATA 5MG PO FOR SLEEP. CALL LIGHT IN REACH. WILL CONT TO MONITOR.
[2019-12-26 03:23] VITALS: BP 148/73
--- NOTE | 2019-12-26 05:04 | NUR ---
PATIENT APPEARS RESTING IN BED AT THIS TIME. EYES CLOSED. RESPS ARE EVEN AND UNLABORED. TELE MONITOR IN PLACE. CALL LIGHT IN REACH. WILL CONT TO MONITOR.
--- NOTE | 2019-12-26 07:00 | NUR ---
REPORT RECEIVED FROM DAMON DAVIS;PT APPEARS TO BE SLEEPING IN SUPINE POSITION;RESPIRATIONS EVEN AND UNLABORED ON RA;NO S/S OF DISTRESS NOTED;TELE MONITORING IN PLACE;ALL SAFETY PRECAUTIONS NOTED WITH BED IN THE LWOEST POSITION AND CALL LIGHT IN REACH;WILL CONTINUE TO MONITOR
[2019-12-26 07:04] LABS: MAGNESIUM 1.8 mg/dL (1.6-2.3)
[2019-12-26 07:11] LABS: CHOLESTEROL HDL RATIO 3.1 (<4.4 (CALC))
[2019-12-26 07:47] VITALS: BP 139/81
--- NOTE | 2019-12-26 07:50 | NUR ---
PT RESTING IN SEMI FOWLERS POSITION,A&O X3;VS OBTAINED AND ASSESSMENT COMPLETED;PT DENIES ANY CURRENT PAIN OR DISCOMFORTS,PAIN SCALE AND REPORTING EDUCATED;RESPIRATIONS EVEN AND UNLABORED ON RA,CLEAR LUNG SOUNDS;ABDOMEN SOFT ON PALPATION AND ACTIVE IN ALL 4 QUADRANTS;WEAK PEDAL PULSES,MULTIPLE NOTED TOE AMPUTATIONS TO RT FOOT;SKIN INTACT;TELE MONITORING IN PLACE;#20G TO LEFT HAND FLUSHED AND PATENT,SITE APPEARS HEALTHY;PT REPORTS ITCHING TO UPPER BACK,NO REDDENING OR SWELLING NOTED AND LOTION APPLIED;PT REPORTS EAGERNESS TO GO HOME,PT RE-ASSURED;PT DENIES ANY ADDITIONAL NEEDS AND IS ENCOURAGED TO CALL FOR ASSISTANCE IF NEEDED;FALL PRECAUTIONS REMAIN IN PLACE WITH CALL LIGHT IN REACH;WILL CONTINUE TO MONITOR
--- NOTE | 2019-12-26 11:11 | NUR ---
AT BEDSIDE DISCUSSING POC INCLUDING PLANS TO D/C HOME.
--- NOTE | 2019-12-26 11:20 | NUR ---
PT RESTING IN SEMI FOWLERS POSITION;RESPIRATIONS EVEN AND UNLABORED ON RA;PT DENIES ANY CURRENT PAIN OR NEEDS;TELE MONITORING IN PLACE;IV SITE PATENT;ACCUCHECK 206, PT COVERED WITH SLIDING SCALE NOVOLOG PER ORDER;PT DENIES ANY ADDITIONAL NEEDS AND IS ENCOURAGED TO CALL FOR ASSISTANCE IF NEEDED;PT UNDERSTANDS PLANS TO D/C HOME;CALL LIGHT IN REACH;WILL CONTINUE TO MONITOR
--- NOTE | 2019-12-26 11:52 | NUR ---
PER LUBNA FROM CASE MANAGEMENT REQUEST, CALLED PT IN ROOM TO DISCUSS MEDS PRIOR TO DISCHARGE. DISCUSSED CONTINUATION OF HOME MEDS, PT HAD NO QUESTIONS OR CONCERNS REGARDING MEDICATIONS, ADVISED PT TO ASK NURSE TO CONTACT PHARMACY IF HE COMES UP WITH ANY QUESTIONS.
[2019-12-26 11:56] VITALS: BP 145/76
--- NOTE | 2019-12-26 12:05 | NUR ---
ALL DISCHARGE INSTRUCTIONS PROVIDED AT THIS TIME;PT ENCOURAGED TO CONTINUE ALL HOME MEDICATIONS AND F/U WITH CARDIOLOGY;PT VERBALIZES UNDERSTANDING AND DENIES ANY ADDITIONAL QUESTIONS OR NEEDS;IV REMOVED WITH CATHETER INTACT AND TELE MONITORING IN PLACE;WHEELCHAIR TO BE PROVIDED FOR D/C HOME;PT TO TRANSPORT SELF HOME;WILL CONTINUE TO MONITOR
--- NOTE | 2019-12-26 12:34 | NUR ---
Discharge instructions given. Patient verbalizes understanding of same. Discharged in stable condition via Wheelchair to Home with *Other. All belongings sent with pt. PT TRANSPORTED TO [facility] IN STABLE CONDITION VIA WHEELCHAIR ACCOMPANIED BY LKOI CRAWFORD.PT TO TRANSPORT SELF HOME.
== END 2019-12-26 12:35 | disposition home or self-care (01) | DRG 313 ==
LOC: ED 15:09 → ED-I 16:10 → ED 16:34 → ED-I 16:35 → MS2 16:35
PROVIDERS: Family Medicine; ADMIT Internal Medicine; ATTEND Internal Medicine
DX: R07.2 Precordial pain (principal); M25.512 Pain in left shoulder; M25.522 Pain in left elbow; I10 Essential (primary) hypertension; I25.10 Atherosclerotic heart disease of native coronary artery without angina pectoris; J44.9 Chronic obstructive pulmonary disease, unspecified; E11.51 Type 2 diabetes mellitus with diabetic peripheral angiopathy without gangrene; I25.2 Old myocardial infarction; Z86.73 Personal history of transient ischemic attack (TIA), and cerebral infarction without residual deficits; Z79.4 Long term (current) use of insulin; Z87.891 Personal history of nicotine dependence
CPT/HCPCS: G0378

== ENCOUNTER 2020-05-04 15:02 | Emergency (ER) | payer OTHER, MEDICARE ==
[~2020-05-04] VITALS: Ht 172.7 cm; Wt 60.0 kg
[2020-05-04 16:26] VITALS: BP 114/57
== END 2020-05-04 16:26 | disposition home or self-care (01) | DRG 556 ==
LOC: ED 15:02
DX: M79.672 Pain in left foot (principal); E11.40 Type 2 diabetes mellitus with diabetic neuropathy, unspecified; F17.200 Nicotine dependence, unspecified, uncomplicated; Z79.4 Long term (current) use of insulin; I25.2 Old myocardial infarction; Z86.73 Personal history of transient ischemic attack (TIA), and cerebral infarction without residual deficits

== ENCOUNTER 2020-09-18 14:35 | Emergency (ER) | payer OTHER, MEDICARE ==
[~2020-09-18] VITALS: Ht 172.7 cm; Wt 58.2 kg
[2020-09-18] MEDS ORDERED: CEPHALEXIN500 M1 PO (16:54)
[2020-09-18 17:32] VITALS: BP 138/78
== END 2020-09-18 17:34 | disposition home or self-care (01) | DRG 603 ==
LOC: ED 14:35
DX: L03.115 Cellulitis of right lower limb (principal); S80.211A Abrasion, right knee, initial encounter; S09.90XA Unspecified injury of head, initial encounter; E11.9 Type 2 diabetes mellitus without complications; I25.2 Old myocardial infarction; F17.200 Nicotine dependence, unspecified, uncomplicated; W18.30XA Fall on same level, unspecified, initial encounter; Y92.009 Unspecified place in unspecified non-institutional (private) residence as the place of occurrence of the external cause; Z79.4 Long term (current) use of insulin; Z86.73 Personal history of transient ischemic attack (TIA), and cerebral infarction without residual deficits

== ENCOUNTER 2020-10-04 16:54 | Emergency (ER) | payer OTHER, MEDICARE ==
[~2020-10-04] VITALS: Ht 172.7 cm; Wt 58.0 kg
[~2020-10-04 16:54] MED LIST changes: +CEPHALEXIN500 M1 PO
[2020-10-04] MEDS ORDERED: KEFLEX500 M1 PO (17:35)
[2020-10-04] MEDS ORDERED: BACTROBAN TOP (17:36)
[2020-10-04 17:38] VITALS: BP 104/78
== END 2020-10-04 18:00 | disposition home or self-care (01) | DRG 603 ==
LOC: ED 16:54
DX: L03.115 Cellulitis of right lower limb (principal); S91.311D Laceration without foreign body, right foot, subsequent encounter; X58.XXXD Exposure to other specified factors, subsequent encounter; E11.9 Type 2 diabetes mellitus without complications; I25.2 Old myocardial infarction; Z86.73 Personal history of transient ischemic attack (TIA), and cerebral infarction without residual deficits; Z79.4 Long term (current) use of insulin

== ENCOUNTER 2020-10-07 16:15 | Emergency (ER) | payer OTHER, MEDICARE ==
[~2020-10-07] VITALS: Ht 172.7 cm; Wt 58.6 kg
[~2020-10-07 16:15] MED LIST changes: +BACTROBAN TOP; +KEFLEX500 M1 PO
[2020-10-07 17:13] LABS: HEMATOCRIT 34.4 % (39.0-50.0); HEMOGLOBIN 11.2 g/dl (14.0-18.0); IMMATURE GRANULOCYTES 0.2 % (0.0-5.0); MEAN CELL VOLUME 92.7 fL CALC (80.0-100.0); MEAN CORPUSCULAR HGB 30.2 pG CALC (26.0-32.0); MEAN CORPUSCULAR HGB CONC 32.6 g/dL CAL (32.0-36.0); NEUT# 5.25 thou/uL (1.82-7.42); RED BLOOD COUNT 3.71 mill/uL (4.70-6.10); RED CELL DISTRI WIDTH 13.2 % (11.5-15.5)
[2020-10-07 17:25] VITALS: BP 160/74
[2020-10-07 17:25] LABS: ANION GAP 11 (6-22 (CALC)); BUN 18 mg/dL (8-23); BUN/CREATININE RATIO 22 (12-20 (CALC)); CHLORIDE 99 mmol/l (95-108); CREATININE 0.9 mg/dL (0.7-1.3); GFR > 60 ML/MIN (>=60 (CALC)); GFR FOR AFR.AMER. > 60 ML/MIN (>=60 (CALC)); POTASSIUM 4.4 mmol/l (3.5-5.1); SODIUM 135 mmol/l (137-146)
[2020-10-07 17:30] LABS: CARBON DIOXIDE 29 mmol/l (22-30)
== END 2020-10-07 18:05 | disposition left against medical advice (07) | DRG 313 ==
LOC: ED 16:15
PROVIDERS: Family Medicine
DX: R07.9 Chest pain, unspecified (principal); E11.9 Type 2 diabetes mellitus without complications; J44.9 Chronic obstructive pulmonary disease, unspecified; I25.2 Old myocardial infarction; Z86.73 Personal history of transient ischemic attack (TIA), and cerebral infarction without residual deficits; Z79.4 Long term (current) use of insulin; Z91.19 Patient's noncompliance with other medical treatment and regimen

== ENCOUNTER 2021-06-18 12:33 | Observation (INO) | payer OTHER, MEDICARE ==
[2021-06-18] VITALS: BP 187/75
[~2021-06-18] VITALS: Ht 172.7 cm; Wt 63.0 kg
--- NOTE | 2021-06-18 12:33 | NUR ---
PT TO ROOM 14 VIA EMS ABLE TO TRANSFER SELF TO STRETCHER. PT C/O LOTS OF BELCHING.
[2021-06-18] MEDS ORDERED: CLOPIDOGREL75 MG PO (12:54)
[2021-06-18] MEDS ORDERED: BRIMONIDINE0.2 % OU (12:56)
[2021-06-18] MEDS ORDERED: VITAMIN D325 MCG PO (12:57)
[2021-06-18] MEDS ORDERED: JARDIANCE25 MG PO (13:01)
[2021-06-18] MEDS ORDERED: FAMOTIDINE20 M1 PO (13:02)
[2021-06-18] MEDS ORDERED: FERROUS SULFAT325 MG PO (13:04)
[2021-06-18] MEDS ORDERED: LOSARTAN POTASS25 MG PO (13:05)
[2021-06-18] MEDS ORDERED: LEVEMIR FL100 UNIT/M SC (13:05)
[2021-06-18 13:09] LABS: HEMATOCRIT 38.5 % (39.0-50.0); HEMOGLOBIN 12.6 g/dl (14.0-18.0); IMMATURE GRANULOCYTES 0.1 % (0.0-5.0); MEAN CELL VOLUME 96.7 fL CALC (80.0-100.0); MEAN CORPUSCULAR HGB 31.7 pG CALC (26.0-32.0); MEAN CORPUSCULAR HGB CONC 32.7 g/dL CAL (32.0-36.0); NEUT# 5.24 thou/uL (1.82-7.42); RED BLOOD COUNT 3.98 mill/uL (4.70-6.10); RED CELL DISTRI WIDTH 12.3 % (11.5-15.5)
[2021-06-18 13:28] LABS: ALKALINE PHOSPHATASE 110 u/l (38-126); AMYLASE 71 u/l (30-110); ANION GAP 14 (6-22 (CALC)); BUN 22 mg/dL (8-23); BUN/CREATININE RATIO 28 (12-20 (CALC)); CARBON DIOXIDE 25 mmol/l (22-30); CHLORIDE 103 mmol/l (95-108); CREATININE 0.8 mg/dL (0.7-1.3); GFR > 60 ML/MIN (>=60 (CALC)); GFR FOR AFR.AMER. > 60 ML/MIN (>=60 (CALC)); LIPASE 40 u/l (23-300); POTASSIUM 4.4 mmol/l (3.5-5.1); SGOT/AST 27 u/l (19-48); SODIUM 137 mmol/l (137-146); TOTAL PROTEIN 7.1 g/dL (6.3-8.2)
--- NOTE | 2021-06-18 13:28 | NUR ---
PT HOOKED BACK UP TO MONITOR AFTER GOING TO BATHROOM, STATES HE HAD A BIG BM BUT NO URINE
[2021-06-18 13:29] LABS: BILIRUBIN, TOTAL 1.1 mg/dL (0.0-1.4)
[2021-06-18 13:37] LABS: MYOGLOBIN 55 ng/mL (0 - 121)
--- NOTE | 2021-06-18 14:11 | NUR ---
PT SITTING IN BED TALKING TO , AWAITING RESULTS
--- NOTE | 2021-06-18 14:47 | NUR ---
PT ARRIVED TO [facility] ROOM 268 VIA WHEELCHAIR ACCOMPAINED BY ER STAFF. PT IS A/O X3. ASSEESSMENT AND VITALS COMPLETED. BP 180/79, HR 60, O2 100% ON ROOM AIR. REPSIRATIONS ARE EVEN AND UNLABORED WITH NO DISTRESS NOTED. LUNG SOUNDS ARE CLEAR. HEART RHYTHM NORMAL, TELE MONITORING PLACED AT THIS TIME (8611). BOWEL SOUNDS ARE ACTIVE, LBM 06/18/21. PULSES STRONG. #20G EMS RAC FLUSHED, SITE APPEARS HEALTHY AND PATENT. SCATTERED BRUSING AND SCABS NOTED TO BLE. RIGHT GREAT TOE AMPUTATED. PT DENIES OF ANY PAINS. CODINE ALLERGY NOTED, ALLERGY BAND AND FALL RISK BAND APPLIED.PT REPORTS FREQUENT FALLS. PT ORIENTED TO ROOM AND CALL SYSTEM. PT DENIES OF ANY ALLERGIES AT THIS TIME. ALL SAFETY PRECAUTIONS ARE IN PLACE WITH CALL LIGHT IN REACH.T INSTRUCTED TO CALL FOR ASSISTANCE. WILL CONTINUE TO MONITOR.
--- NOTE | 2021-06-18 16:18 | NUR ---
THIS NURSE ONLY TAKING OVER CARE TO GIVE REPORT TO THE FLOOR NURSE AT THIS TIME. REPORT GIVEN TO JANINE HOPSON ON PT AT THIS TIME. PTS NURSE MICKIE RN MADE AWARE OF PT BEING READY FOR TRANSPORT TO THE FLOOR.
--- NOTE | 2021-06-18 16:20 | NUR ---
RECIEVED REPORT FROM ER NURSE.
--- NOTE | 2021-06-18 16:45 | NUR ---
TRANSPORTED PT VIA WHEELCHAIR TO FLOOR, AOX3 WITH NO COMPLAINTS, HOME HEALTH CARE SOCIAL WORKER AND ALL BELONGINGS WITH PT
[2021-06-18 17:08] VITALS: BP 180/75
--- NOTE | 2021-06-18 17:40 | NUR ---
PT ASKING FOR INSULIN. PT INFORMED OF ORDER NEEDED. DR MERIDA INFORMED.
[2021-06-18 19:00] VITALS: BP 215/88
--- NOTE | 2021-06-18 19:25 | NUR ---
IVF ADMINISTERED AT THIS TIME. DENIES PAIN OR DISCOMFORT AT THIS TIME. DENIES N/V/D ALSO AT THIS TIME. DISCUSSED POC, DIET, NPO TIMING, CONSENT FORMS, PT VERBALIZES UNDERSTANDING, DENIES HAVING TALKED TO SURGEON YET AT THIS TIME, WILL PREP CONSENT PAPERS ONLY BUT WILL WAIT FOR SIGNATURE FOR SURGEON DISCUSSION WITH PT. HE DENIES ANY OTHER NEEDS AT THIS TIME. I INSTRUCTED HIM TO CALL NEEDS ARISE USING CALL LIGHT/REVIEWED.
--- NOTE | 2021-06-18 20:13 | NUR ---
ENTERED ROOM AFTER NOCKING, PT STATED "DIDN'T YOU HEAR ME SAY WAIT A MINUTE?" HE WAS ATTEMPTING TO USE THE URINAL AND ASKED FOR PRIVACY. DENIES ANY ASSISTANCE AT THIS TIME.
[2021-06-18 23:05] VITALS: BP 187/75
--- NOTE | 2021-06-18 23:10 | NUR ---
PT CALLED ASKING FOR WARM COMPRESS FOR WHAT APPEARS TO BE A LARGE PIMPLE/SMALL BOIL TYPE BUMP ON HIS ABD. HE WAS ASKING ME TO "POP IT" I ADVISED HIM THAT I COULD NOT DO THAT, BUT THAT I COULD PROVIDE HIM WITH A WARM MOIST CLOTH/PROVIDED. PT PROCEEDED TO POP IT HIMSELF AND PLACE WARM COMPRESS TO SPOT ON HIS ABD.
--- NOTE | 2021-06-18 23:35 | NUR ---
PT CALLED TO ASK THAT HIS DOOR BE CLOSED, PROVIDED. DENIES ANY OTHER NEEDS OF ASSISTANCE.
[2021-06-19] VITALS (7 sets, daily range): BP systolic 149–189; BP diastolic 70–82
--- NOTE | 2021-06-19 00:23 | NUR ---
LAB IS IN WITH PT AT THIS TIME. 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
--- NOTE | 2021-06-19 01:20 | NUR ---
warm compress applied to left hand again per request. pt medicated with muscle relaxant at this time to help pt relax and with back discomfort.
--- NOTE | 2021-06-19 02:35 | NUR ---
PT'S RESTROOM CALL LIGHT SOUNDED. UPON ENTERING THE ROOM HE WAS STANDING IN THE RESTROOM STATING THAT HIS CALL LIGHT HAD FALLEN TO THE FLOOR BECAUSE IT WON'T WRAP AROUND THE BED RAIL SO HE GOT UP AND WENT TO THE BATHROOM TO PULL THAT CALL LIGHT TO GET HELP GETTING HIS CALL LIGHT OFF THE FLOOR. WE ASSISTED HIM BACK TO THE BED AND CLIPPED CALL LIGHT TO THE BED FOR SAFETY. I ADVISED THE PT THAT I NEEDED TO LEAVE THE DOOR OPEN SO HE CAN YELL IF HE LOSES HIS CALL LIGHT AND WE ARE ABLE TO HEAR HIM. HE HAS BEEN REQUIRING THAT WE KEEP DOOR CLOSED, HE AGREED TO LEAVING THE DOOR OPEN FOR SAFETY REASONS. C/O THAT HIS LEFT HAND IS ITCHING. DENIES CHEST/BACK OR ANY OTHER ITCHING, "JUST LEFT HAND NEAR THUMB" WARM PACK AND COOL PACK PROVIDED PER REQUEST.
--- NOTE | 2021-06-19 03:11 | NUR ---
PT APPEARS CALM, LIGHTS AND TV DOWN LOW. NO S/O DISTRESS AT THIS TIME.
--- NOTE | 2021-06-19 04:53 | NUR ---
PT MEDICATED FOR ELEVATED SBP. PT WAS SLEEPING I ENTERED THE ROOM.
[2021-06-19 06:01] LABS: HEMATOCRIT 39.5 % (39.0-50.0); HEMOGLOBIN 13.3 g/dl (14.0-18.0); MEAN CORPUSCULAR HGB 31.7 pG CALC (26.0-32.0); MEAN CORPUSCULAR HGB CONC 33.7 g/dL CAL (32.0-36.0); RED BLOOD COUNT 4.2 mill/uL (4.70-6.10); RED CELL DISTRI WIDTH 12.3 % (11.5-15.5)
[2021-06-19 06:10] LABS: ANION GAP 14 (6-22 (CALC)); BUN 24 mg/dL (8-23); BUN/CREATININE RATIO 33 (12-20 (CALC)); CALCULATED LDLCHOLESTEROL 58 mg/dL (62-129 (CALC)); CARBON DIOXIDE 24 mmol/l (22-30); CHLORIDE 106 mmol/l (95-108); CHOLESTEROL HDL RATIO 3.2 (<4.4 (CALC)); CREATININE 0.7 mg/dL (0.7-1.3); GFR > 60 ML/MIN (>=60 (CALC)); GFR FOR AFR.AMER. > 60 ML/MIN (>=60 (CALC)); HDL CHOLESTEROL 41 mg/dL (>=40); MAGNESIUM 2.2 mg/dL (1.6-2.3); POTASSIUM 3.9 mmol/l (3.5-5.1); SODIUM 140 mmol/l (137-146); TOTAL CHOLESTEROL 130 mg/dl (0-199); TOTAL TRIGLYCERIDES 154 mg/dl (30-149); VLDL CHOLESTROL 31 mg/dl (0-38 (CALC))
--- NOTE | 2021-06-19 07:00 | NUR ---
RECIEVED REPORT FROM DAMON DALAL
--- NOTE | 2021-06-19 08:16 | NUR ---
PT SITTING IN HIGH FOLWERS POSITION EATING BREAKFAST. PT IS A/O X3. ASSESSMENT AND VITALS COMPLETED. BP 164/82, HR 70, O2 100% ON ROOM AIR. RESPIRATIONS ARE EVEN AND UNLABORED WITH NO DISTRESS NOTED. LUNG SOUNDS ARE CLEAR. HEART RHYTHM NORMAL WITH TELE IN PLACE,SR PER ER MONITORING. #20G EMS IN RAC FLUSHED, SITE APPEARS HEALTHY AND PATENT. SKIN INTACT. PT DENIES OF ANY PAINS OR DISCOMFORTS AT THIS TIME. ALL SAFETY PRECAUTIONS ARE IN PLACE WITH CALL LIGHT IN REACH. WILL CONTINUE TO MONITOR.
--- NOTE | 2021-06-19 10:06 | NUR ---
PHYSICAL THERAPY AT BEDSIDE.
--- NOTE | 2021-06-19 10:31 | NUR ---
DR MERIDA AND LINDSEY,ANPEREZ AT BEDSIDE
[2021-06-19] MEDS ORDERED: AMLODIPINE BESYL5 MG PO (10:34)
--- NOTE | 2021-06-19 11:17 | NUR ---
PT EDUCATED ON DC INSTRUCTIONS AND NEW MEDICATIONS. #20G RAC REMOVEDD WITH CATH STILL INTACT. TELE MONITORING REMOVED. ER NOTIFIED. PT REFUSES LUNCH, INSULIN HELD. TRANSPORTATION CALLED. WILL CONTINUE TO [facility]
--- NOTE | 2021-06-19 11:35 | NUR ---
Patient was seen on this date for a screen by PT department for possible intervention. Patient reported that he lives with his and only has 1 step in his home. Patient reported having only 1 previous recent fall due tripping while walking his dog on unevened grassy yard. Patient usually walks with a cane but also has a FWW that he can use at home. Patient performed bed mobility independently and all transfers with SBA x 1 for safety. Patient was able to ambulate with FWW and SBA x 1 with some gait deviations due to R hallux amputation during push off and lateral swing during swing phase. All BLE strength was 3+/5 and all BLE AROM were WFL. Patient is not a good candidate for PT interventions at this time as he is able to perform most ADLs safely without needing additional assistance.
--- NOTE | 2021-06-19 11:38 | NUR ---
Discharge instructions given. Patient verbalizes understanding of same. Discharged in stable condition via Wheelchair to Home with *Other. All belongings sent with pt. PT DC HOME VIA WHEELCHAIR ACCOMPAINED BY LOKI ESTRADA IN STABLE CONDITION WITH ALL DC INSTRUCTIONS AND PERSONAL BELONGINGS.
== END 2021-06-19 11:38 | disposition home or self-care (01) | DRG 313 ==
LOC: ED 12:33 → ED-I 15:00 → ED 15:25 → MS2 15:26
PROVIDERS: Family Medicine; ADMIT Hospitalist; ATTEND Hospitalist
DX: R07.9 Chest pain, unspecified (principal); I10 Essential (primary) hypertension; E11.51 Type 2 diabetes mellitus with diabetic peripheral angiopathy without gangrene; I25.10 Atherosclerotic heart disease of native coronary artery without angina pectoris; J44.9 Chronic obstructive pulmonary disease, unspecified; E11.42 Type 2 diabetes mellitus with diabetic polyneuropathy; E78.5 Hyperlipidemia, unspecified; K21.9 Gastro-esophageal reflux disease without esophagitis; F32.A Depression, unspecified; G89.29 Other chronic pain; M54.9 Dorsalgia, unspecified; F41.9 Anxiety disorder, unspecified; I25.2 Old myocardial infarction; Z86.73 Personal history of transient ischemic attack (TIA), and cerebral infarction without residual deficits; Z87.891 Personal history of nicotine dependence; Z95.5 Presence of coronary angioplasty implant and graft; Z79.4 Long term (current) use of insulin; Z20.822 Contact with and (suspected) exposure to COVID-19
CPT/HCPCS: G0378; J1650

== ENCOUNTER 2021-07-16 13:37 | Emergency (ER) | payer OTHER, MEDICARE ==
[~2021-07-16] VITALS: Ht 172.7 cm; Wt 60.0 kg
[~2021-07-16 13:37] MED LIST changes: +AMLODIPINE BESYL5 MG PO; +BRIMONIDINE0.2 % OU; +CLOPIDOGREL75 MG PO; +FAMOTIDINE20 M1 PO; +FERROUS SULFAT325 MG PO; +JARDIANCE25 MG PO; +LEVEMIR FL100 UNIT/M SC; +LOSARTAN POTASS25 MG PO; +VITAMIN D325 MCG PO
[2021-07-16 14:28] LABS: HEMATOCRIT 38.5 % (39.0-50.0); HEMOGLOBIN 12.9 g/dl (14.0-18.0); IMMATURE GRANULOCYTES 0.2 % (0.0-5.0); MEAN CELL VOLUME 95.3 fL CALC (80.0-100.0); MEAN CORPUSCULAR HGB 31.9 pG CALC (26.0-32.0); MEAN CORPUSCULAR HGB CONC 33.5 g/dL CAL (32.0-36.0); NEUT# 6.57 thou/uL (1.82-7.42); RED BLOOD COUNT 4.04 mill/uL (4.70-6.10); RED CELL DISTRI WIDTH 12.2 % (11.5-15.5)
[2021-07-16 15:30] LABS: ALBUMIN 3.8 g/dL (3.2-5.0); ALKALINE PHOSPHATASE 106 u/l (38-126); ANION GAP 11 (6-22 (CALC)); BILIRUBIN, TOTAL 0.9 mg/dL (0.0-1.4); BUN 17 mg/dL (8-23); BUN/CREATININE RATIO 16 (12-20 (CALC)); CHLORIDE 102 mmol/l (95-108); GFR > 60 ML/MIN (>=60 (CALC)); GFR FOR AFR.AMER. > 60 ML/MIN (>=60 (CALC)); POTASSIUM 4.4 mmol/l (3.5-5.1); SGOT/AST 28 u/l (19-48); SODIUM 138 mmol/l (137-146)
[2021-07-16 15:38] LABS: CARBON DIOXIDE 29 mmol/l (22-30)
[2021-07-16 16:08] VITALS: BP 188/87
== END 2021-07-16 16:08 | disposition home or self-care (01) | DRG 552 ==
LOC: ED 13:37
PROVIDERS: Family Medicine
DX: M54.2 Cervicalgia (principal); E11.9 Type 2 diabetes mellitus without complications; J44.9 Chronic obstructive pulmonary disease, unspecified; F41.9 Anxiety disorder, unspecified; Z79.4 Long term (current) use of insulin; Z86.73 Personal history of transient ischemic attack (TIA), and cerebral infarction without residual deficits; V03.09XA Pedestrian with other conveyance injured in collision with car, pick-up truck or van in nontraffic accident, initial encounter; Y92.481 Parking lot as the place of occurrence of the external cause

== ENCOUNTER 2021-07-22 14:01 | Observation (INO) | payer OTHER, MEDICARE ==
[~2021-07-22] VITALS: Ht 172.7 cm; Wt 64.0 kg
[2021-07-22 14:57] LABS: HEMATOCRIT 39.3 % (39.0-50.0); HEMOGLOBIN 12.7 g/dl (14.0-18.0); IMMATURE GRANULOCYTES 0.1 % (0.0-5.0); MEAN CORPUSCULAR HGB 31.7 pG CALC (26.0-32.0); MEAN CORPUSCULAR HGB CONC 32.3 g/dL CAL (32.0-36.0); NEUT# 7.6 thou/uL (1.82-7.42); RED BLOOD COUNT 4.01 mill/uL (4.70-6.10); RED CELL DISTRI WIDTH 12.2 % (11.5-15.5)
[2021-07-22 15:10] LABS: ALBUMIN 3.8 g/dL (3.2-5.0); ALKALINE PHOSPHATASE 119 u/l (38-126); ANION GAP 11 (6-22 (CALC)); BILIRUBIN, TOTAL 0.8 mg/dL (0.0-1.4); BUN 21 mg/dL (8-23); BUN/CREATININE RATIO 24 (12-20 (CALC)); CARBON DIOXIDE 28 mmol/l (22-30); CHLORIDE 105 mmol/l (95-108); CREATININE 0.9 mg/dL (0.7-1.3); GFR > 60 ML/MIN (>=60 (CALC)); GFR FOR AFR.AMER. > 60 ML/MIN (>=60 (CALC)); POTASSIUM 4.2 mmol/l (3.5-5.1); SGOT/AST 28 u/l (19-48); SODIUM 140 mmol/l (137-146); TOTAL PROTEIN 7.4 g/dL (6.3-8.2)
[2021-07-22 16:57] LABS: INTERNATIONAL NORMALIZED RATIO 0.9 RATIO (0.7-1.3); PROTHROMBIN TIME 9.1 SECONDS (9.0-12.5)
[2021-07-22 18:45] VITALS: BP 141/86
[2021-07-22 18:49] LABS: TSH, 3RD GENERATION 0.62 uIU/mL (0.47 - 4.68)
[2021-07-23] VITALS: BP 189/90
[2021-07-23 04:00] VITALS: BP 167/77
[2021-07-23 06:01] LABS: CHOLESTEROL HDL RATIO 3.1 (<4.4 (CALC)); MAGNESIUM 2.1 mg/dL (1.6-2.3)
[2021-07-23 12:07] VITALS: BP 151/61
[2021-07-23] MEDS ORDERED: VITAMIN B-121000 MCG PO (12:07)
[2021-07-23] MEDS ORDERED: BUSPIRONE10 MG PO (12:18)
[2021-07-23] MEDS ORDERED: SERTRALINE50 MG PO (12:20)
[2021-07-23] MEDS ORDERED: LATANOPROST0.005 % OU (12:25)
[2021-07-23] MEDS ORDERED: NOVOLOG FLEX SC (12:29)
== END 2021-07-23 14:00 | disposition home or self-care (01) | DRG 93 ==
LOC: ED 14:01 → ED-I 15:40 → ED 18:00 → ICU 18:01
PROVIDERS: Family Medicine; ADMIT Internal Medicine; ATTEND Internal Medicine
DX: R27.8 Other lack of coordination (principal); R25.1 Tremor, unspecified; I10 Essential (primary) hypertension; E11.42 Type 2 diabetes mellitus with diabetic polyneuropathy; E11.51 Type 2 diabetes mellitus with diabetic peripheral angiopathy without gangrene; I25.10 Atherosclerotic heart disease of native coronary artery without angina pectoris; J44.9 Chronic obstructive pulmonary disease, unspecified; I69.398 Other sequelae of cerebral infarction; H53.9 Unspecified visual disturbance; F10.10 Alcohol abuse, uncomplicated; E78.5 Hyperlipidemia, unspecified; F41.9 Anxiety disorder, unspecified; F32.A Depression, unspecified; K21.9 Gastro-esophageal reflux disease without esophagitis; M54.9 Dorsalgia, unspecified; M54.2 Cervicalgia; G89.29 Other chronic pain; I25.2 Old myocardial infarction; Z87.891 Personal history of nicotine dependence; Z79.02 Long term (current) use of antithrombotics/antiplatelets; Z87.820 Personal history of traumatic brain injury; Z79.82 Long term (current) use of aspirin; Z79.4 Long term (current) use of insulin; Z95.5 Presence of coronary angioplasty implant and graft; Z20.822 Contact with and (suspected) exposure to COVID-19
CPT/HCPCS: Q9967

== ENCOUNTER 2021-07-29 04:09 | Observation (INO) | payer OTHER, MEDICARE ==
[~2021-07-29] VITALS: Ht 172.7 cm; Wt 61.8 kg
[~2021-07-29 04:09] MED LIST changes: +BUSPIRONE10 MG PO; +NOVOLOG FLEX SC; +VITAMIN B-121000 MCG PO
[2021-07-29 04:44] LABS: HEMOGLOBIN 13.2 g/dl (14.0-18.0); IMMATURE GRANULOCYTES 0.6 % (0.0-5.0); MEAN CELL VOLUME 99.3 fL CALC (80.0-100.0); MEAN CORPUSCULAR HGB 31.2 pG CALC (26.0-32.0); MEAN CORPUSCULAR HGB CONC 31.4 g/dL CAL (32.0-36.0); NEUT# 3.49 thou/uL (1.82-7.42); RED BLOOD COUNT 4.23 mill/uL (4.70-6.10); RED CELL DISTRI WIDTH 12.3 % (11.5-15.5)
[2021-07-29 04:54] LABS: ALKALINE PHOSPHATASE 112 u/l (38-126); ANION GAP 11 (6-22 (CALC)); BILIRUBIN, TOTAL 0.6 mg/dL (0.0-1.4); BUN 23 mg/dL (8-23); BUN/CREATININE RATIO 26 (12-20 (CALC)); CARBON DIOXIDE 30 mmol/l (22-30); CHLORIDE 105 mmol/l (95-108); CREATININE 0.9 mg/dL (0.7-1.3); GFR > 60 ML/MIN (>=60 (CALC)); GFR FOR AFR.AMER. > 60 ML/MIN (>=60 (CALC)); POTASSIUM 4.4 mmol/l (3.5-5.1); SGOT/AST 28 u/l (19-48); SODIUM 141 mmol/l (137-146); TOTAL PROTEIN 7.2 g/dL (6.3-8.2)
[2021-07-29 04:58] LABS: D-DIMER 1.19 mg/L (0.19-0.60)
[2021-07-29 05:05] LABS: MYOGLOBIN 45 ng/mL (0 - 121)
[2021-07-29 05:11] LABS: ACT PARTIAL THROMBO TIME 33.7 SECONDS (20.0-32.5); INTERNATIONAL NORMALIZED RATIO 0.9 RATIO (0.7-1.3); PROTHROMBIN TIME 9.7 SECONDS (9.0-12.5)
[2021-07-29 10:01] VITALS: BP 150/74
[2021-07-29 15:00] VITALS: BP 153/77
== END 2021-07-29 16:32 | disposition home or self-care (01) | DRG 313 ==
LOC: ED-I 04:26 → ED 04:26 → ED-I 07:06 → ED 07:31 → MS2 07:32
PROVIDERS: Family Medicine; ADMIT Hospitalist; ATTEND Hospitalist
DX: R07.9 Chest pain, unspecified (principal); I10 Essential (primary) hypertension; E11.51 Type 2 diabetes mellitus with diabetic peripheral angiopathy without gangrene; E11.42 Type 2 diabetes mellitus with diabetic polyneuropathy; E11.65 Type 2 diabetes mellitus with hyperglycemia; J44.9 Chronic obstructive pulmonary disease, unspecified; I25.10 Atherosclerotic heart disease of native coronary artery without angina pectoris; E78.5 Hyperlipidemia, unspecified; F41.9 Anxiety disorder, unspecified; F32.A Depression, unspecified; I25.2 Old myocardial infarction; Z79.4 Long term (current) use of insulin; Z86.73 Personal history of transient ischemic attack (TIA), and cerebral infarction without residual deficits; Z89.421 Acquired absence of other right toe(s); Z95.5 Presence of coronary angioplasty implant and graft; Z79.02 Long term (current) use of antithrombotics/antiplatelets; Z79.82 Long term (current) use of aspirin; Z20.822 Contact with and (suspected) exposure to COVID-19
CPT/HCPCS: Q9967

== ENCOUNTER 2021-09-04 14:40 | Emergency (ER) | payer OTHER, MEDICARE ==
[~2021-09-04] VITALS: Ht 172.7 cm; Wt 65.0 kg
[2021-09-04] MEDS ORDERED: KEFLEX500 MG PO (16:22)
[2021-09-04] MEDS ORDERED: ULTRAM50 M1 PO (16:22)
[2021-09-04 17:05] VITALS: BP 127/61
== END 2021-09-04 17:05 | disposition home or self-care (01) | DRG 607 ==
LOC: ED 14:40
DX: L84 Corns and callosities (principal); S40.811A Abrasion of right upper arm, initial encounter; E11.51 Type 2 diabetes mellitus with diabetic peripheral angiopathy without gangrene; I25.2 Old myocardial infarction; F41.9 Anxiety disorder, unspecified; J44.9 Chronic obstructive pulmonary disease, unspecified; X58.XXXA Exposure to other specified factors, initial encounter; Z79.4 Long term (current) use of insulin; Z89.421 Acquired absence of other right toe(s); Z86.73 Personal history of transient ischemic attack (TIA), and cerebral infarction without residual deficits

== ENCOUNTER 2021-09-08 09:56 | Emergency (ER) | payer OTHER, MEDICARE ==
[~2021-09-08] VITALS: Ht 172.7 cm; Wt 64.1 kg
[~2021-09-08 09:56] MED LIST changes: +KEFLEX500 MG PO; +ULTRAM50 M1 PO
[2021-09-08 11:12] LABS: HEMATOCRIT 43.5 % (39.0-50.0); HEMOGLOBIN 14.1 g/dl (14.0-18.0); IMMATURE GRANULOCYTES 0.1 % (0.0-5.0); MEAN CELL VOLUME 97.8 fL CALC (80.0-100.0); MEAN CORPUSCULAR HGB 31.7 pG CALC (26.0-32.0); MEAN CORPUSCULAR HGB CONC 32.4 g/dL CAL (32.0-36.0); NEUT# 10.33 thou/uL (1.82-7.42); RED BLOOD COUNT 4.45 mill/uL (4.70-6.10); RED CELL DISTRI WIDTH 12.2 % (11.5-15.5)
[2021-09-08 11:25] LABS: ALKALINE PHOSPHATASE 124 u/l (38-126); ANION GAP 13 (6-22 (CALC)); BILIRUBIN, TOTAL 0.7 mg/dL (0.0-1.4); BUN 21 mg/dL (8-23); BUN/CREATININE RATIO 24 (12-20 (CALC)); CARBON DIOXIDE 28 mmol/l (22-30); CHLORIDE 104 mmol/l (95-108); CREATININE 0.9 mg/dL (0.7-1.3); GFR > 60 ML/MIN (>=60 (CALC)); GFR FOR AFR.AMER. > 60 ML/MIN (>=60 (CALC)); POTASSIUM 4.7 mmol/l (3.5-5.1); SGOT/AST 33 u/l (19-48); SODIUM 141 mmol/l (137-146); TOTAL PROTEIN 7.1 g/dL (6.3-8.2)
[2021-09-08] MEDS ORDERED: TRAMADOL HYDROC50 M1 PO (12:00)
[2021-09-08 12:20] VITALS: BP 163/77
== END 2021-09-08 12:22 | disposition left against medical advice (07) | DRG 313 ==
LOC: ED 09:56
PROVIDERS: Family Medicine
DX: R07.9 Chest pain, unspecified (principal); I10 Essential (primary) hypertension; E11.51 Type 2 diabetes mellitus with diabetic peripheral angiopathy without gangrene; J44.9 Chronic obstructive pulmonary disease, unspecified; F41.9 Anxiety disorder, unspecified; I25.2 Old myocardial infarction; Z79.4 Long term (current) use of insulin; Z95.5 Presence of coronary angioplasty implant and graft; Z86.73 Personal history of transient ischemic attack (TIA), and cerebral infarction without residual deficits; Z91.19 Patient's noncompliance with other medical treatment and regimen

== ENCOUNTER 2021-10-20 12:37 | Emergency (ER) | payer OTHER, MEDICARE ==
[~2021-10-20] VITALS: Ht 172.7 cm; Wt 61.8 kg
[~2021-10-20 12:37] MED LIST changes: +TRAMADOL HYDROC50 M1 PO
[2021-10-20] MEDS ORDERED: CEPHALEXIN500 MG PO (16:56)
[2021-10-20] MEDS ORDERED: TRAMADOL HYDROC50 M1 PO (16:56)
[2021-10-20 17:06] VITALS: BP 168/80
== END 2021-10-20 17:15 | disposition home or self-care (01) | DRG 607 ==
LOC: ED 12:37
DX: L84 Corns and callosities (principal); E11.51 Type 2 diabetes mellitus with diabetic peripheral angiopathy without gangrene; J44.9 Chronic obstructive pulmonary disease, unspecified; F41.9 Anxiety disorder, unspecified; I25.2 Old myocardial infarction; Z79.4 Long term (current) use of insulin; Z86.73 Personal history of transient ischemic attack (TIA), and cerebral infarction without residual deficits; Z89.421 Acquired absence of other right toe(s); Z89.411 Acquired absence of right great toe

== ENCOUNTER 2022-01-09 12:44 | Emergency (ER) | payer OTHER, MEDICARE ==
[2022-01-09] VITALS (8 sets, daily range): BP systolic 114–186; BP diastolic 72–84
[~2022-01-09] VITALS: Ht 172.7 cm; Wt 63.0 kg
[~2022-01-09 12:44] MED LIST changes: +CEPHALEXIN500 MG PO
[2022-01-09] MEDS ORDERED: TRAMADOL HCL50 MG PO (15:08)
== END 2022-01-09 15:52 | disposition home or self-care (01) | DRG 605 ==
LOC: ED 12:44
DX: S20.211A Contusion of right front wall of thorax, initial encounter (principal); W18.30XA Fall on same level, unspecified, initial encounter

== ENCOUNTER 2022-01-14 11:41 | Emergency (ER) | payer OTHER, MEDICARE ==
[2022-01-14] VITALS (9 sets, daily range): BP systolic 113–148; BP diastolic 59–67
[~2022-01-14] VITALS: Ht 172.7 cm; Wt 68.0 kg
[2022-01-14 12:16] LABS: HEMATOCRIT 34.7 % (39.0-50.0); HEMOGLOBIN 11.2 g/dl (14.0-18.0); IMMATURE GRANULOCYTES 0.1 % (0.0-5.0); MEAN CELL VOLUME 95.9 fL CALC (80.0-100.0); MEAN CORPUSCULAR HGB 30.9 pG CALC (26.0-32.0); MEAN CORPUSCULAR HGB CONC 32.3 g/dL CAL (32.0-36.0); NEUT# 11.32 thou/uL (1.82-7.42); RED BLOOD COUNT 3.62 mill/uL (4.70-6.10); RED CELL DISTRI WIDTH 12.6 % (11.5-15.5)
[2022-01-14 12:30] LABS: ALBUMIN 3.5 g/dL (3.2-5.0); ALKALINE PHOSPHATASE 78 u/l (38-126); BILIRUBIN, TOTAL 0.6 mg/dL (0.0-1.4); BUN 23 mg/dL (8-23); BUN/CREATININE RATIO 28 (12-20 (CALC)); CARBON DIOXIDE 23 mmol/l (22-30); CHLORIDE 102 mmol/l (95-108); CREATININE 0.8 mg/dL (0.7-1.3); GFR > 60 ML/MIN (>=60 (CALC)); GFR FOR AFR.AMER. > 60 ML/MIN (>=60 (CALC)); LIPASE 31 u/l (23-300); SGOT/AST 26 u/l (19-48); SODIUM 134 mmol/l (137-146); TOTAL PROTEIN 6.3 g/dL (6.3-8.2)
[2022-01-14 12:31] LABS: ANION GAP 13 (6-22 (CALC))
[2022-01-14 12:32] LABS: POTASSIUM 3.6 mmol/l (3.5-5.1)
[2022-01-14 14:01] LABS: URINE BILIRUBIN - DIPSTICK NEGATIVE (NEGATIVE); URINE BLOOD DIPSTICK NEGATIVE (NEGATIVE); URINE COLOR YELLOW; URINE GLUCOSE - DIPSTICK >=1000 mg/dL (NEGATIVE); URINE KETONE NEGATIVE (NEGATIVE); URINE LEUK ESTERASE NEGATIVE (NEGATIVE); URINE PH 6.5 (4.5-8.0); URINE PROTEIN - DIPSTICK NEGATIVE (NEG-TRACE); URINE SPECIFIC GRAVITY <=1.005; URINE UROBILINOGEN - DIPSTICK 0.2 E.U./dL (0.2)
[2022-01-14 14:05] LABS: URINE NITRITE - DIPSTICK NEGATIVE (Negative)
== END 2022-01-14 14:58 | disposition home or self-care (01) | DRG 639 ==
LOC: ED 11:41
PROVIDERS: Nurse Practitioner
DX: E11.9 Type 2 diabetes mellitus without complications (principal); D72.829 Elevated white blood cell count, unspecified; I25.2 Old myocardial infarction; J44.9 Chronic obstructive pulmonary disease, unspecified; F41.9 Anxiety disorder, unspecified; Z79.84 Long term (current) use of oral hypoglycemic drugs

== ENCOUNTER 2022-06-29 22:06 | Emergency (ER) | payer OTHER, MEDICARE ==
[~2022-06-29] VITALS: Ht 172.7 cm; Wt 95.0 kg
[2022-06-29 22:54] VITALS: BP 147/76
[2022-06-29 23:01] VITALS: BP 148/78
[2022-06-29 23:16] VITALS: BP 165/88
[2022-06-29 23:30] VITALS: BP 179/84
[2022-06-29 23:31] LABS: IMMATURE GRANULOCYTES 0.2 % (0.0-5.0); MEAN CELL VOLUME 95.8 fL CALC (80.0-100.0); MEAN CORPUSCULAR HGB 31.7 pG CALC (26.0-32.0); MEAN CORPUSCULAR HGB CONC 33.1 g/dL CAL (32.0-36.0); NEUT# 3.83 thou/uL (1.82-7.42); RED BLOOD COUNT 4.26 mill/uL (4.70-6.10); RED CELL DISTRI WIDTH 12.4 % (11.5-15.5)
[2022-06-29 23:33] LABS: HEMATOCRIT 40.8 % (39.0-50.0); HEMOGLOBIN 13.5 g/dl (14.0-18.0)
[2022-06-29 23:47] LABS: ALBUMIN 4.2 g/dL (3.2-5.0); ALKALINE PHOSPHATASE 92 u/l (38-126); BILIRUBIN, TOTAL 0.4 mg/dL (0.0-1.4); BUN 19 mg/dL (8-23); BUN/CREATININE RATIO 15 (12-20 (CALC)); CHLORIDE 103 mmol/l (95-108); CPK 206 u/l (52-200); CREATININE 1.2 mg/dL (0.7-1.3); ETHYL ALCOHOL 0 mg/dl (0-30); GFR FOR AFR.AMER. > 60 ML/MIN (>=60 (CALC)); GFR OTHER RACES 59 ML/MIN (>=60 (CALC)); SGOT/AST 30 u/l (19-48); SODIUM 139 mmol/l (137-146); TOTAL PROTEIN 7.2 g/dL (6.3-8.2)
[2022-06-29 23:48] LABS: ANION GAP 13 (6-22 (CALC)); CARBON DIOXIDE 28 mmol/l (22-30); POTASSIUM 4.7 mmol/l (3.5-5.1)
[2022-06-29 23:56] VITALS: BP 173/78
[2022-06-30] VITALS (13 sets, daily range): BP systolic 134–192; BP diastolic 68–100
[2022-06-30] MEDS ORDERED: FLUOXETINE20 MG PO (00:09)
[2022-06-30] MEDS ORDERED: PROTONIX40 M2 PO (00:14)
[2022-06-30] MEDS ORDERED: CRESTOR20 MG PO (00:15)
[2022-06-30 00:35] LABS: URINE BILIRUBIN - DIPSTICK NEGATIVE (NEGATIVE); URINE BLOOD DIPSTICK NEGATIVE (NEGATIVE); URINE COLOR YELLOW; URINE GLUCOSE - DIPSTICK >=1000 mg/dL (NEGATIVE); URINE KETONE NEGATIVE (NEGATIVE); URINE LEUK ESTERASE NEGATIVE (NEGATIVE); URINE NITRITE - DIPSTICK NEGATIVE (Negative); URINE PH 6.5 (4.5-8.0); URINE PROTEIN - DIPSTICK NEGATIVE (NEG-TRACE); URINE SPECIFIC GRAVITY <=1.005
== END 2022-06-30 03:07 | disposition home or self-care (01) | DRG 93 ==
LOC: ED 22:06
PROVIDERS: Emergency Medicine
DX: R25.8 Other abnormal involuntary movements (principal); R26.89 Other abnormalities of gait and mobility; R53.1 Weakness; F10.90 Alcohol use, unspecified, uncomplicated; I10 Essential (primary) hypertension; E11.51 Type 2 diabetes mellitus with diabetic peripheral angiopathy without gangrene; J44.9 Chronic obstructive pulmonary disease, unspecified; F41.9 Anxiety disorder, unspecified; I25.2 Old myocardial infarction; Z79.4 Long term (current) use of insulin; Z86.73 Personal history of transient ischemic attack (TIA), and cerebral infarction without residual deficits; Z20.822 Contact with and (suspected) exposure to COVID-19

== ENCOUNTER 2022-07-07 10:48 | Emergency (ER) | payer OTHER, MEDICARE ==
[~2022-07-07] VITALS: Ht 172.7 cm; Wt 85.0 kg
[~2022-07-07 10:48] MED LIST changes: +CRESTOR20 MG PO; +FLUOXETINE20 MG PO; +PROTONIX40 M2 PO
[2022-07-07 11:11] VITALS: BP 177/79
[2022-07-07 11:31] VITALS: BP 179/68
[2022-07-07 11:47] LABS: ALKALINE PHOSPHATASE 123 u/l (38-126); ANION GAP 18 (6-22 (CALC)); BUN 33 mg/dL (8-23); BUN/CREATININE RATIO 34 (12-20 (CALC)); CARBON DIOXIDE 23 mmol/l (22-30); CHLORIDE 104 mmol/l (95-108); GFR FOR AFR.AMER. > 60 ML/MIN (>=60 (CALC)); GFR OTHER RACES > 60 ML/MIN (>=60 (CALC)); POTASSIUM 4.9 mmol/l (3.5-5.1); SGOT/AST 31 u/l (19-48); SODIUM 139 mmol/l (137-146); TOTAL PROTEIN 8.3 g/dL (6.3-8.2)
[2022-07-07 11:48] LABS: IMMATURE GRANULOCYTES 0.1 % (0.0-5.0); MEAN CELL VOLUME 94.3 fL CALC (80.0-100.0); MEAN CORPUSCULAR HGB 31.5 pG CALC (26.0-32.0); MEAN CORPUSCULAR HGB CONC 33.4 g/dL CAL (32.0-36.0); NEUT# 9.25 thou/uL (1.82-7.42); RED BLOOD COUNT 5.05 mill/uL (4.70-6.10); RED CELL DISTRI WIDTH 12.1 % (11.5-15.5)
[2022-07-07 11:57] LABS: ALBUMIN 5.1 g/dL (3.2-5.0); BILIRUBIN, TOTAL 1.1 mg/dL (0.0-1.4)
[2022-07-07 12:01] VITALS: BP 181/81
[2022-07-07 12:11] LABS: HEMATOCRIT 47.6 % (39.0-50.0); HEMOGLOBIN 15.9 g/dl (14.0-18.0)
[2022-07-07 12:17] LABS: ETHYL ALCOHOL 0 mg/dl (0-30)
[2022-07-07 12:30] VITALS: BP 187/80
[2022-07-07 13:01] VITALS: BP 191/83
[2022-07-07 13:48] VITALS: BP 191/83
== END 2022-07-07 13:49 | disposition left against medical advice (07) | DRG 392 ==
LOC: ED 10:48
PROVIDERS: Emergency Medicine
DX: R10.13 Epigastric pain (principal); I10 Essential (primary) hypertension; E11.51 Type 2 diabetes mellitus with diabetic peripheral angiopathy without gangrene; I25.10 Atherosclerotic heart disease of native coronary artery without angina pectoris; J44.9 Chronic obstructive pulmonary disease, unspecified; K21.9 Gastro-esophageal reflux disease without esophagitis; Z53.29 Procedure and treatment not carried out because of patient's decision for other reasons; Z79.4 Long term (current) use of insulin; Z86.73 Personal history of transient ischemic attack (TIA), and cerebral infarction without residual deficits

== ENCOUNTER 2022-09-30 13:06 | Observation (INO) | payer OTHER, MEDICARE ==
[~2022-09-30] VITALS: Ht 172.7 cm; Wt 79.4 kg
[2022-09-30] VITALS (12 sets, daily range): BP systolic 87–186; BP diastolic 56–97
[2022-09-30 14:09] LABS: BASO% 0.2 % (0-3); HEMATOCRIT 43.2 % (39.0-50.0); IMMATURE GRANULOCYTES 0.1 % (0.0-5.0); LYMPH% 15.1 % (15-41); MEAN CELL VOLUME 96.9 fL CALC (80.0-100.0); MEAN CORPUSCULAR HGB 31.2 pG CALC (26.0-32.0); MEAN CORPUSCULAR HGB CONC 32.2 g/dL CAL (32.0-36.0); MONO% 5.8 % (2-13); NEUT# 6.69 thou/uL (1.82-7.42); NEUT% 77.8 % (42-76); RED BLOOD COUNT 4.46 mill/uL (4.70-6.10); RED CELL DISTRI WIDTH 12.6 % (11.5-15.5)
[2022-09-30 14:11] LABS: HEMOGLOBIN 13.9 g/dl (14.0-18.0)
[2022-09-30 14:18] LABS: ALBUMIN 4.3 g/dL (3.2-5.0); ALKALINE PHOSPHATASE 87 u/l (38-126); ANION GAP 11 (6-22 (CALC)); BILIRUBIN, TOTAL 0.9 mg/dL (0.2-1.3); BUN 28 mg/dL (8-23); BUN/CREATININE RATIO 35 (12-20 (CALC)); CARBON DIOXIDE 27 mmol/l (22-30); CHLORIDE 103 mmol/l (95-108); CPK 76 u/l (55-170); CREATININE 0.8 mg/dL (0.7-1.3); GFR FOR AFR.AMER. > 60 ML/MIN (>=60 (CALC)); GFR OTHER RACES > 60 ML/MIN (>=60 (CALC)); POTASSIUM 4.4 mmol/l (3.5-5.1); SGOT/AST 30 u/l (19-48); SODIUM 137 mmol/l (137-146); TOTAL PROTEIN 7.4 g/dL (6.3-8.2)
[2022-09-30 16:59] LABS: URINE BILIRUBIN - DIPSTICK NEGATIVE (NEGATIVE); URINE BLOOD DIPSTICK NEGATIVE (NEGATIVE); URINE COLOR YELLOW; URINE GLUCOSE - DIPSTICK >=1000 mg/dL (NEGATIVE); URINE KETONE 15 mg/dL (NEGATIVE); URINE LEUK ESTERASE NEGATIVE (NEGATIVE); URINE PROTEIN - DIPSTICK 30 mg/dL (NEG-TRACE); URINE UROBILINOGEN - DIPSTICK 0.2 E.U./dL (0.2)
[2022-09-30 17:00] LABS: URINE NITRITE - DIPSTICK NEGATIVE (Negative)
[2022-09-30 17:12] LABS: URINE RBC 0-2 RBC/hpf (0-5); URINE SPERM MANY hpf (NONE-RARE); URINE WBC 0-2 WBC/hpf (0-5)
[2022-10-01 04:40] VITALS: BP 168/69
[2022-10-01 06:16] VITALS: BP 199/86
[2022-10-01 06:17] VITALS: BP 186/81
[2022-10-01 06:18] VITALS: BP 186/81
[2022-10-01 06:34] LABS: CHOLESTEROL HDL RATIO 4.1 (<4.4 (CALC)); MAGNESIUM 2.2 mg/dL (1.6-2.3)
[2022-10-01 07:04] VITALS: BP 171/73
[2022-10-01 10:53] VITALS: BP 148/69
== END 2022-10-01 13:48 | disposition home or self-care (01) | DRG 312 ==
LOC: ED 13:06 → ED-I 15:50 → ED 16:35 → MS2 16:36
PROVIDERS: Family Medicine; ADMIT Internal Medicine; ATTEND Internal Medicine
DX: R55 Syncope and collapse (principal); R53.1 Weakness; I10 Essential (primary) hypertension; E11.51 Type 2 diabetes mellitus with diabetic peripheral angiopathy without gangrene; J44.9 Chronic obstructive pulmonary disease, unspecified; I25.10 Atherosclerotic heart disease of native coronary artery without angina pectoris; F41.9 Anxiety disorder, unspecified; F32.A Depression, unspecified; E78.5 Hyperlipidemia, unspecified; K21.9 Gastro-esophageal reflux disease without esophagitis; I25.2 Old myocardial infarction; Z86.16 Personal history of COVID-19; Z79.4 Long term (current) use of insulin; Z86.73 Personal history of transient ischemic attack (TIA), and cerebral infarction without residual deficits; Z20.822 Contact with and (suspected) exposure to COVID-19; Z87.891 Personal history of nicotine dependence

== ENCOUNTER 2022-12-14 09:59 | Emergency (ER) | payer OTHER, MEDICARE ==
[~2022-12-14] VITALS: Ht 172.7 cm; Wt 62.0 kg
[2022-12-14 11:23] VITALS: BP 184/75
== END 2022-12-14 11:24 | disposition home or self-care (01) | DRG 607 ==
LOC: ED 09:59
DX: L84 Corns and callosities (principal); I10 Essential (primary) hypertension; E11.51 Type 2 diabetes mellitus with diabetic peripheral angiopathy without gangrene; I25.2 Old myocardial infarction; J44.9 Chronic obstructive pulmonary disease, unspecified; Z86.73 Personal history of transient ischemic attack (TIA), and cerebral infarction without residual deficits; Z79.4 Long term (current) use of insulin

== ENCOUNTER 2023-04-07 00:03 | Emergency (ER) | payer OTHER, MEDICARE ==
[2023-04-07] VITALS (8 sets, daily range): BP systolic 73–175; BP diastolic 55–76
[~2023-04-07] VITALS: Ht 172.7 cm; Wt 63.0 kg
== END 2023-04-07 02:11 | disposition home or self-care (01) | DRG 639 ==
LOC: ED 00:03
DX: E11.65 Type 2 diabetes mellitus with hyperglycemia (principal); F41.1 Generalized anxiety disorder; I10 Essential (primary) hypertension; E11.51 Type 2 diabetes mellitus with diabetic peripheral angiopathy without gangrene; J44.9 Chronic obstructive pulmonary disease, unspecified; F43.10 Post-traumatic stress disorder, unspecified; I25.2 Old myocardial infarction; Z86.73 Personal history of transient ischemic attack (TIA), and cerebral infarction without residual deficits; Z79.4 Long term (current) use of insulin

== ENCOUNTER 2023-05-28 15:37 | Observation (INO) | payer OTHER, MEDICARE ==
[~2023-05-28] VITALS: Ht 172.7 cm; Wt 65.0 kg
[2023-05-28] VITALS (11 sets, daily range): BP systolic 80–172; BP diastolic 44–92
--- NOTE | 2023-05-28 15:40 | NUR ---
PT TO ROOM VIA WC
[2023-05-28 16:07] LABS: BASO% 0.2 % (0-3); EOS% 0.9 % (0-8); HEMATOCRIT 40.7 % (39.0-50.0); HEMOGLOBIN 13.5 g/dl (14.0-18.0); IMMATURE GRANULOCYTES 0.1 % (0.0-5.0); LYMPH% 17.5 % (15-41); MEAN CELL VOLUME 95.3 fL CALC (80.0-100.0); MEAN CORPUSCULAR HGB 31.6 pG CALC (26.0-32.0); MEAN CORPUSCULAR HGB CONC 33.2 g/dL CAL (32.0-36.0); NEUT# 6.56 thou/uL (1.82-7.42); NEUT% 72.3 % (42-76); RED BLOOD COUNT 4.27 mill/uL (4.70-6.10)
[2023-05-28 16:23] LABS: PROTHROMBIN TIME 9.9 SECONDS (9.0-12.5)
[2023-05-28 16:25] LABS: ALBUMIN 3.8 g/dL (3.2-5.0); ALKALINE PHOSPHATASE 86 u/l (38-126); ANION GAP 13 (6-22 (CALC)); BILIRUBIN, TOTAL 0.6 mg/dL (0.2-1.3); BUN 20 mg/dL (8-23); BUN/CREATININE RATIO 15 (12-20 (CALC)); CALCULATED LDLCHOLESTEROL 88 mg/dL (62-129 (CALC)); CARBON DIOXIDE 25 mmol/l (22-30); CHLORIDE 105 mmol/l (95-108); CHOLESTEROL HDL RATIO 3.1 (<4.4 (CALC)); CREATININE 1.3 mg/dL (0.7-1.3); GFR FOR AFR.AMER. > 60 ML/MIN (>=60 (CALC)); GFR OTHER RACES 54 ML/MIN (>=60 (CALC)); HDL CHOLESTEROL 51 mg/dL (39.0-59.0); POTASSIUM 4.1 mmol/l (3.5-5.1); SGOT/AST 29 u/l (19-48); SODIUM 139 mmol/l (137-146); TOTAL CHOLESTEROL 159 mg/dl (0-199); TOTAL PROTEIN 6.5 g/dL (6.3-8.2); TOTAL TRIGLYCERIDES 101 mg/dl (0-149); VLDL CHOLESTROL 20 mg/dl (0-38 (CALC))
--- NOTE | 2023-05-28 17:30 | NUR ---
FIRST IV ACCESS INFILTRATED, NEW IV PLACED 20 R AC
--- NOTE | 2023-05-28 18:20 | NUR ---
PT HAS PASSED [id number], PT PROVIDED WATER NAD.
[2023-05-28] MEDS ORDERED: LEVEMIR100 UNIT SC (19:59)
--- NOTE | 2023-05-28 20:05 | NUR ---
ATTEMPTED TO CALL TO GIVE REPORT FOR ADMISSION. NURSE UNAVAILABLE AT THIS TIME
--- NOTE | 2023-05-28 20:14 | NUR ---
REPORT GIVEN TO DAMON BARDSHAW. PT TRANSFERRED TO [facility] VIA WC. TELE BOX 10 APPLIED.
--- NOTE | 2023-05-28 20:26 | NUR ---
Patient arrived weighted 64.2 kg and the nurse was notified.
--- NOTE | 2023-05-28 20:55 | NUR ---
Checked glucose meter 112 and the nurse was notified.
[2023-05-29] VITALS (7 sets, daily range): BP systolic 142–183; BP diastolic 60–71
--- NOTE | 2023-05-29 | NUR ---
RECEIVED REPORT FROM ED NURSE, JAYCE TRANSPORTED VIA WHEELCHAIR ARRIVED TO UNIT AT 2021, PATIENT SEEN USING A CANE, PATIENT ALERT ORIENTED, GLUSOSE CHECK 112, PATIENT SALINE LOCK ON RAC PATENT FLUHES WELL, HOOKED ON TELEMETRY, NOT IN DISTRESS, NIH 0, ADMISSION ASSESSMENT COMPLETED, DINNER PROVIDED, JAYCE ORIENTED TO ROOM AND CALL LIGHT SYSTEM.
--- NOTE | 2023-05-29 04:20 | NUR ---
PATIENT C/O HEADACHE PRN TYLENOL REQUESTED, WILL REEVALUATE.
[2023-05-29 05:22] LABS: URINE BILIRUBIN - DIPSTICK Negative (NEGATIVE); URINE BLOOD DIPSTICK Trace-intact (NEGATIVE); URINE GLUCOSE - DIPSTICK 500 mg/dL (NEGATIVE); URINE KETONE Negative (NEGATIVE); URINE LEUK ESTERASE Negative (NEGATIVE); URINE NITRITE - DIPSTICK Negative (Negative); URINE PH 6.5 (4.5-8.0); URINE PROTEIN - DIPSTICK Negative (NEG-TRACE); URINE UROBILINOGEN - DIPSTICK 0.2 E.U./dL (0.2)
[2023-05-29 05:23] LABS: URINE COLOR Yellow
[2023-05-29 06:04] LABS: HEMATOCRIT 40.1 % (39.0-50.0); HEMOGLOBIN 13.3 g/dl (14.0-18.0); MEAN CELL VOLUME 94.8 fL CALC (80.0-100.0); MEAN CORPUSCULAR HGB 31.4 pG CALC (26.0-32.0); MEAN CORPUSCULAR HGB CONC 33.2 g/dL CAL (32.0-36.0); RED BLOOD COUNT 4.23 mill/uL (4.70-6.10); RED CELL DISTRI WIDTH 12.2 % (11.5-15.5)
[2023-05-29 06:26] LABS: ANION GAP 10 (6-22 (CALC)); BUN 17 mg/dL (8-23); BUN/CREATININE RATIO 20 (12-20 (CALC)); CALCULATED LDLCHOLESTEROL 73 mg/dL (62-129 (CALC)); CARBON DIOXIDE 26 mmol/l (22-30); CHLORIDE 109 mmol/l (95-108); CHOLESTEROL HDL RATIO 3.1 (<4.4 (CALC)); CREATININE 0.8 mg/dL (0.7-1.3); GFR FOR AFR.AMER. > 60 ML/MIN (>=60 (CALC)); GFR OTHER RACES > 60 ML/MIN (>=60 (CALC)); HDL CHOLESTEROL 46 mg/dL (39.0-59.0); MAGNESIUM 2.1 mg/dL (1.6-2.3); POTASSIUM 3.5 mmol/l (3.5-5.1); SODIUM 141 mmol/l (137-146); TOTAL CHOLESTEROL 145 mg/dl (0-199); TOTAL TRIGLYCERIDES 126 mg/dl (0-149); VLDL CHOLESTROL 25 mg/dl (0-38 (CALC))
--- NOTE | 2023-05-29 07:56 | NUR ---
PT RESTING IN BED SEMI FOWLERS; ALERT AND ORIENTED X 3. C/O 4/10 HEADACHE; COOL WASH CLOTH APPLIED TO FOREHEAD. RESPIRATIONS EVEN AND UNLABORED ON ROOM AIR; DENIES SOB. BLOOD PRESSURE 183/71. TELE IN PLACE. NORMAL SALINE INFUSING AT 80ML/HR; IV SITE APPEARS HEALTHY AND FLUSHES. PLAN OF CARE REVIEWED; PT ENCOURAGED TO VERBALIZE CONCERNS; STATES UNDERSTANDING AND REQUESTS TO BE DISCHARGED TODAY. SAFETY MEASURES IN PLACE; CALL LIGHT WITHIN REACH.
--- NOTE | 2023-05-29 09:30 | NUR ---
BLOOD PRESSURE TRENDING DOWN; HEADACHE RESOLVED.
--- NOTE | 2023-05-29 11:58 | NUR ---
OFF UNIT VIA WHEELCHAIR TO MRI IN STABLE CONDITION.
--- NOTE | 2023-05-29 12:35 | NUR ---
RETURNED TO ROOM FROM MRI IN STABLE CONDITION. IV FLUIDS RECONNECTED. SITTING UP IN BED EATING LUNCH. DENIES PAIN. NO REQUESTS OR CONCERNS AT THIS TIME.
--- NOTE | 2023-05-29 16:25 | NUR ---
PT RESTING IN BED SEMI FOWLERS WATCHING TV. UPDATED OF NEURO CONSULT SCHEDULED IN APPROXIMATELY ONE HOUR. DISCHARGE PLANNING ALSO DISCUSSED PENDING CONSULT. SAFETY MEASURES IN PLACE; CALL LIGHT WITHIN REACH.
--- NOTE | 2023-05-29 16:55 | NUR ---
TELENEURO CONSULT IN PROGRESS AT BEDSIDE.
[2023-05-29] MEDS ORDERED: CRESTOR20 MG PO (17:52)
--- NOTE | 2023-05-29 17:53 | NUR ---
IV site discontinued, cath intact. No edema , no redness, voices no discomfort.
[2023-05-29] MEDS ORDERED: ASPIRIN 81 LOW81 MG PO (17:54)
[2023-05-29] MEDS ORDERED: CLOPIDOGREL75 MG PO (17:55)
--- NOTE | 2023-05-29 18:28 | NUR ---
Discharge instructions given. Patient verbalizes understanding of same. Discharged in stable condition via Wheelchair to Home with spouse. All belongings sent with pt.
== END 2023-05-29 18:28 | disposition home or self-care (01) | DRG 123 ==
LOC: ED 15:37 → ED-I 18:30 → ED 19:03 → MS2 19:04
PROVIDERS: Family Medicine; ADMIT Student in an Organized Health Care Education/Training Program; ATTEND Student in an Organized Health Care Education/Training Program
DX: H53.123 Transient visual loss, bilateral (principal); I10 Essential (primary) hypertension; E11.51 Type 2 diabetes mellitus with diabetic peripheral angiopathy without gangrene; J44.9 Chronic obstructive pulmonary disease, unspecified; I25.10 Atherosclerotic heart disease of native coronary artery without angina pectoris; E78.5 Hyperlipidemia, unspecified; I69.998 Other sequelae following unspecified cerebrovascular disease; H54.61 Unqualified visual loss, right eye, normal vision left eye; F41.9 Anxiety disorder, unspecified; F32.A Depression, unspecified; K21.9 Gastro-esophageal reflux disease without esophagitis; I25.2 Old myocardial infarction; Z79.4 Long term (current) use of insulin; Z95.5 Presence of coronary angioplasty implant and graft; Z87.891 Personal history of nicotine dependence; Z20.822 Contact with and (suspected) exposure to COVID-19
CPT/HCPCS: Q9967

== ENCOUNTER 2023-09-14 16:15 | Observation (INO) | payer OTHER, MEDICARE ==
[~2023-09-14] VITALS: Ht 172.7 cm; Wt 60.2 kg
[~2023-09-14 16:15] MED LIST changes: +ASPIRIN 81 LOW81 MG PO; +LEVEMIR100 UNIT SC
[2023-09-14 16:42] LABS: BASO% 0.3 % (0-3); EOS% 1.2 % (0-8); HEMATOCRIT 37.7 % (39.0-50.0); HEMOGLOBIN 12.2 g/dl (14.0-18.0); IMMATURE GRANULOCYTES 0.1 % (0.0-5.0); MEAN CELL VOLUME 98.2 fL CALC (80.0-100.0); MEAN CORPUSCULAR HGB 31.8 pG CALC (26.0-32.0); MEAN CORPUSCULAR HGB CONC 32.4 g/dL CAL (32.0-36.0); MONO% 9.3 % (2-13); NEUT# 5.07 thou/uL (1.82-7.42); NEUT% 65.1 % (42-76); RED BLOOD COUNT 3.84 mill/uL (4.70-6.10); RED CELL DISTRI WIDTH 12.2 % (11.5-15.5)
[2023-09-14 16:58] LABS: ALBUMIN 3.5 g/dL (3.2-5.0); ALKALINE PHOSPHATASE 74 u/l (38-126); BILIRUBIN, TOTAL 0.6 mg/dL (0.2-1.3); BUN 24 mg/dL (8-23); BUN/CREATININE RATIO 26 (12-20 (CALC)); CALCULATED LDLCHOLESTEROL 60 mg/dL (62-129 (CALC)); CARBON DIOXIDE 24 mmol/l (22-30); CHLORIDE 102 mmol/l (95-108); CHOLESTEROL HDL RATIO 3.1 (<4.4 (CALC)); GFR FOR AFR.AMER. > 60 ML/MIN (>=60 (CALC)); GFR OTHER RACES > 60 ML/MIN (>=60 (CALC)); HDL CHOLESTEROL 39 mg/dL (39.0-59.0); SGOT/AST 29 u/l (19-48); SODIUM 131 mmol/l (137-146); TOTAL TRIGLYCERIDES 104 mg/dl (0-149); VLDL CHOLESTROL 21 mg/dl (0-38 (CALC))
[2023-09-14 16:59] LABS: INTERNATIONAL NORMALIZED RATIO 1.1 RATIO (0.7-1.3); PROTHROMBIN TIME 10.2 SECONDS (9.0-12.5)
[2023-09-14 17:01] LABS: ANION GAP 10 (6-22 (CALC)); POTASSIUM 4.7 mmol/l (3.5-5.1); TOTAL CHOLESTEROL 120 mg/dl (0-199)
[2023-09-14 18:23] LABS: URINE BILIRUBIN - DIPSTICK Negative (NEGATIVE); URINE BLOOD DIPSTICK Negative (NEGATIVE); URINE GLUCOSE - DIPSTICK >=1000 mg/dL (NEGATIVE); URINE KETONE Negative (NEGATIVE); URINE LEUK ESTERASE Negative (NEGATIVE); URINE NITRITE - DIPSTICK Negative (Negative); URINE PROTEIN - DIPSTICK Negative (NEG-TRACE); URINE UROBILINOGEN - DIPSTICK 0.2 E.U./dL (0.2)
[2023-09-14 18:24] LABS: URINE COLOR Yellow
[2023-09-14] MEDS ORDERED: CRESTOR20 MG PO (19:35)
[2023-09-14] MEDS ORDERED: ZOLOFT100 MG PO (19:36)
[2023-09-14] MEDS ORDERED: GLUCOSE4 GM (19:37)
[2023-09-14 23:29] VITALS: BP 139/76
[2023-09-14 23:31] VITALS: BP 167/78
[2023-09-14 23:50] VITALS: BP 171/76
[2023-09-15 04:37] VITALS: BP 159/70
[2023-09-15 05:58] LABS: BASO% 0.3 % (0-3); EOS% 1.6 % (0-8); HEMATOCRIT 41.4 % (39.0-50.0); HEMOGLOBIN 13.6 g/dl (14.0-18.0); LYMPH% 27.5 % (15-41); MEAN CELL VOLUME 98.1 fL CALC (80.0-100.0); MEAN CORPUSCULAR HGB 32.2 pG CALC (26.0-32.0); MEAN CORPUSCULAR HGB CONC 32.9 g/dL CAL (32.0-36.0); MONO% 9.6 % (2-13); NEUT# 4.22 thou/uL (1.82-7.42); RED BLOOD COUNT 4.22 mill/uL (4.70-6.10); RED CELL DISTRI WIDTH 12.1 % (11.5-15.5)
[2023-09-15 06:25] VITALS: BP 164/73
[2023-09-15 06:25] LABS: ALBUMIN 3.7 g/dL (3.2-5.0); ALKALINE PHOSPHATASE 81 u/l (38-126); BILIRUBIN, TOTAL 0.5 mg/dL (0.2-1.3); BUN 21 mg/dL (8-23); BUN/CREATININE RATIO 29 (12-20 (CALC)); CARBON DIOXIDE 28 mmol/l (22-30); CHLORIDE 109 mmol/l (95-108); CREATININE 0.7 mg/dL (0.7-1.3); GFR FOR AFR.AMER. > 60 ML/MIN (>=60 (CALC)); GFR OTHER RACES > 60 ML/MIN (>=60 (CALC)); MAGNESIUM 2.5 mg/dL (1.6-2.3); SGOT/AST 27 u/l (19-48); TOTAL PROTEIN 6.2 g/dL (6.3-8.2)
[2023-09-15 06:34] LABS: ANION GAP 8 (6-22 (CALC)); SODIUM 141 mmol/l (137-146)
[2023-09-15 07:25] VITALS: BP 164/73
[2023-09-15 10:05] VITALS: BP 151/57
[2023-09-15 11:00] VITALS: BP 151/57
[2023-09-15] MEDS ORDERED: ATORVASTATIN CA40 MG PO (13:18)
== END 2023-09-15 14:30 | disposition home health service (06) | DRG 92 ==
LOC: ED 16:15 → ED-I 16:57 → ED 16:57 → ED-I 18:15 → ED 23:23 → MS2 23:24
PROVIDERS: Family Medicine; ADMIT Student in an Organized Health Care Education/Training Program; ATTEND Student in an Organized Health Care Education/Training Program
DX: R20.0 Anesthesia of skin (principal); R47.81 Slurred speech; H53.8 Other visual disturbances; I10 Essential (primary) hypertension; E11.51 Type 2 diabetes mellitus with diabetic peripheral angiopathy without gangrene; E11.42 Type 2 diabetes mellitus with diabetic polyneuropathy; I69.354 Hemiplegia and hemiparesis following cerebral infarction affecting left non-dominant side; J44.9 Chronic obstructive pulmonary disease, unspecified; I25.10 Atherosclerotic heart disease of native coronary artery without angina pectoris; I08.3 Combined rheumatic disorders of mitral, aortic and tricuspid valves; F41.9 Anxiety disorder, unspecified; F32.A Depression, unspecified; I25.2 Old myocardial infarction; Z95.5 Presence of coronary angioplasty implant and graft; Z87.891 Personal history of nicotine dependence; Z79.4 Long term (current) use of insulin
CPT/HCPCS: Q9967

== ENCOUNTER 2023-10-23 11:16 | Observation (INO) | payer OTHER, MEDICARE ==
[~2023-10-23] VITALS: Ht 172.7 cm; Wt 56.6 kg
[2023-10-23] VITALS (13 sets, daily range): BP systolic 75–137; BP diastolic 46–68
[~2023-10-23 11:16] MED LIST changes: +GLUCOSE4 GM; +ZOLOFT100 MG PO
[2023-10-23] MEDS ORDERED: SODIUM CHLORIDE 0.9% 1,000 ML IV ONE ×2 (11:32→11:40)
[2023-10-23 12:46] LABS: BASO% 0.3 % (0-3); EOS% 1.6 % (0-8); HEMATOCRIT 35.9 % (39.0-50.0); HEMOGLOBIN 11.8 g/dl (14.0-18.0); IMMATURE GRANULOCYTES 0.1 % (0.0-5.0); LYMPH% 13.6 % (15-41); MEAN CELL VOLUME 96.5 fL CALC (80.0-100.0); MEAN CORPUSCULAR HGB 31.7 pG CALC (26.0-32.0); MEAN CORPUSCULAR HGB CONC 32.9 g/dL CAL (32.0-36.0); MONO% 5.8 % (2-13); NEUT# 7.73 thou/uL (1.82-7.42); NEUT% 78.6 % (42-76); RED BLOOD COUNT 3.72 mill/uL (4.70-6.10); RED CELL DISTRI WIDTH 12.1 % (11.5-15.5)
[2023-10-23 13:04] LABS: ALBUMIN 3.8 g/dL (3.2-5.0); ALKALINE PHOSPHATASE 83 u/l (38-126); ANION GAP 11 (6-22 (CALC)); BILIRUBIN, TOTAL 0.4 mg/dL (0.2-1.3); BUN 22 mg/dL (8-23); BUN/CREATININE RATIO 21 (12-20 (CALC)); CARBON DIOXIDE 26 mmol/l (22-30); CHLORIDE 104 mmol/l (95-108); CREATININE 1.1 mg/dL (0.7-1.3); GFR FOR AFR.AMER. > 60 ML/MIN (>=60 (CALC)); GFR OTHER RACES > 60 ML/MIN (>=60 (CALC)); POTASSIUM 3.9 mmol/l (3.5-5.1); SGOT/AST 30 u/l (19-48); SODIUM 136 mmol/l (137-146); TOTAL PROTEIN 6.3 g/dL (6.3-8.2)
[2023-10-23] MEDS ORDERED: GLUCAGON HCL (Rdna) 1 MG VIAL IV ONE (14:25)
[2023-10-23 14:27] LABS: URINE BILIRUBIN - DIPSTICK Negative (NEGATIVE); URINE BLOOD DIPSTICK Negative (NEGATIVE); URINE GLUCOSE - DIPSTICK >=1000 mg/dL (NEGATIVE); URINE KETONE Negative (NEGATIVE); URINE LEUK ESTERASE Negative (NEGATIVE); URINE NITRITE - DIPSTICK Negative (Negative); URINE PROTEIN - DIPSTICK Negative (NEG-TRACE); URINE UROBILINOGEN - DIPSTICK 0.2 E.U./dL (0.2)
[2023-10-23 14:29] LABS: URINE COLOR Yellow
[2023-10-23] MEDS ORDERED: MAGNESIUM HYDROXIDE 30 ML UDC PO PRN (15:10)
[2023-10-23] MEDS ORDERED: ACETAMINOPHEN 325 MG/TAB PO PRN (15:10)
[2023-10-23] MEDS ORDERED: SODIUM CHLORIDE 0.9% 1,000 ML IV PRN (15:10)
[2023-10-23] MEDS ORDERED: ELIQUIS5 MG PO (16:21)
[2023-10-23] MEDS ORDERED: CRESTOR40 MG PO (16:25)
[2023-10-23] MEDS ORDERED: ENOXAPARIN SODIUM 40 MG/0.4 ML SYR SC SCH (21:00)
[2023-10-24 00:13] VITALS: BP 166/70
[2023-10-24 02:13] LABS: BASO% 0.4 % (0-3); EOS% 2.7 % (0-8); HEMATOCRIT 41.3 % (39.0-50.0); HEMOGLOBIN 13.4 g/dl (14.0-18.0); IMMATURE GRANULOCYTES 0.1 % (0.0-5.0); LYMPH% 23.1 % (15-41); MEAN CELL VOLUME 95.6 fL CALC (80.0-100.0); MEAN CORPUSCULAR HGB CONC 32.4 g/dL CAL (32.0-36.0); MONO% 6.1 % (2-13); NEUT# 5.29 thou/uL (1.82-7.42); NEUT% 67.6 % (42-76); RED BLOOD COUNT 4.32 mill/uL (4.70-6.10); RED CELL DISTRI WIDTH 12.1 % (11.5-15.5)
[2023-10-24 02:21] LABS: ANION GAP 12 (6-22 (CALC)); BUN 20 mg/dL (8-23); BUN/CREATININE RATIO 23 (12-20 (CALC)); CARBON DIOXIDE 26 mmol/l (22-30); CHLORIDE 106 mmol/l (95-108); CREATININE 0.9 mg/dL (0.7-1.3); GFR FOR AFR.AMER. > 60 ML/MIN (>=60 (CALC)); GFR OTHER RACES > 60 ML/MIN (>=60 (CALC)); MAGNESIUM 2.4 mg/dL (1.6-2.3); POTASSIUM 4.3 mmol/l (3.5-5.1); SODIUM 140 mmol/l (137-146)
[2023-10-24 04:34] VITALS: BP 139/73
[2023-10-24 07:20] VITALS: BP 170/69
[2023-10-24 07:41] VITALS: BP 170/69
[2023-10-24] MEDS ORDERED: FLUOXETINE 20 MG PO SCH (11:38)
[2023-10-24] MEDS ORDERED: DEXTROSE 250 ML IV PRN ×2 (11:40)
[2023-10-24] MEDS ORDERED: ACETAMINOPHEN 325 MG/TAB PO PRN (11:40)
[2023-10-24 11:52] VITALS: BP 149/67
[2023-10-24] MEDS ORDERED: FAMOTIDINE 20 MG/TAB PO SCH (12:30)
[2023-10-24] MEDS ORDERED: APIXABAN BASE 5 MG TAB PO SCH (12:30)
[2023-10-24] MEDS ORDERED: LOSARTAN Potassium 25 MG/TAB PO SCH (13:00)
[2023-10-24] MEDS ORDERED: INSULIN LISPRO 100 UNITS/ML ML SC SCH ×3 (13:00→17:00)
[2023-10-24 13:04] VITALS: BP 149/67
[2023-10-24] MEDS ORDERED: GABAPENTIN 300 MG/CAP PO SCH (21:00)
[2023-10-24] MEDS ORDERED: ATORVASTATIN CALCIUM 40 MG/TAB PO SCH (21:00)
[2023-10-24] MEDS ORDERED: LATANOPROST 2.5 ML BTL OU SCH (21:00)
== END 2023-10-24 15:20 | disposition home health service (06) | DRG 312 ==
LOC: ED 11:16 → ED-I 12:26 → ED 15:03 → MS2 15:04
PROVIDERS: Family Medicine; ADMIT Student in an Organized Health Care Education/Training Program; ATTEND Student in an Organized Health Care Education/Training Program
DX: I95.1 Orthostatic hypotension (principal); T17.228A Food in pharynx causing other injury, initial encounter; G82.20 Paraplegia, unspecified; I10 Essential (primary) hypertension; E11.51 Type 2 diabetes mellitus with diabetic peripheral angiopathy without gangrene; E11.42 Type 2 diabetes mellitus with diabetic polyneuropathy; I25.10 Atherosclerotic heart disease of native coronary artery without angina pectoris; J44.9 Chronic obstructive pulmonary disease, unspecified; E78.5 Hyperlipidemia, unspecified; K21.9 Gastro-esophageal reflux disease without esophagitis; F41.9 Anxiety disorder, unspecified; F32.A Depression, unspecified; G40.909 Epilepsy, unspecified, not intractable, without status epilepticus; K08.109 Complete loss of teeth, unspecified cause, unspecified class; I25.2 Old myocardial infarction; W44.F3XA Food entering into or through a natural orifice, initial encounter; Z86.73 Personal history of transient ischemic attack (TIA), and cerebral infarction without residual deficits; Z95.5 Presence of coronary angioplasty implant and graft; Z79.4 Long term (current) use of insulin; Z20.822 Contact with and (suspected) exposure to COVID-19; Z89.411 Acquired absence of right great toe
CPT/HCPCS: G0378; J1610; J1650

== ENCOUNTER 2024-05-05 20:10 | Emergency (ER) | payer MEDICARE ==
[2024-05-05] VITALS (10 sets, daily range): BP systolic 149–200; BP diastolic 70–92
[~2024-05-05] VITALS: Ht 172.7 cm; Wt 60.7 kg
[~2024-05-05 20:10] MED LIST changes: +ACETAMINOPHEN500 MG PO; +ARTIFICIAL TEARS OU; +B-121000 MC6 PO; +BISACODYL5 M1 PO; +CRESTOR40 MG PO; +ELIQUIS5 MG PO; -FLUOXETINE20 MG PO; +GLUCERNA SHAKE PO; -GLUCOSE4 GM; +GLUCOSE4 GM PO; +IPRATROPIUM BR0.03 %; +LOSARTAN POTASS50 MG PO; -NEURONTIN800 MG PO; +NITROSTAT0.4 MG PO; -NOVOLOG FLEX SC; +NOVOLOG100 UNIT SC; +PREMIUM LIDOCAINE5 % TOP; +PROZAC20 MG PO; +SEMGLEE SC; -TACTINAL325 MG PO; +TUMS E-X 750750 MG PO
[2024-05-05] MEDS ORDERED: SODIUM CHLORIDE 0.9% 1,000 ML IV ONE (20:45)
[2024-05-05] MEDS ORDERED: INSULIN REGULAR (HUMAN) 100 UNIT/ML INJ IV ONE (20:45)
[2024-05-05 20:52] LABS: BASO% 0.2 % (0-3); HEMATOCRIT 40.3 % (39.0-50.0); HEMOGLOBIN 13.2 g/dl (14.0-18.0); IMMATURE GRANULOCYTES 0.2 % (0.0-5.0); LYMPH% 24.4 % (15-41); MEAN CELL VOLUME 94.8 fL CALC (80.0-100.0); MEAN CORPUSCULAR HGB 31.1 pG CALC (26.0-32.0); MEAN CORPUSCULAR HGB CONC 32.8 g/dL CAL (32.0-36.0); NEUT# 4.13 thou/uL (1.82-7.42); NEUT% 64.2 % (42-76); RED BLOOD COUNT 4.25 mill/uL (4.70-6.10); RED CELL DISTRI WIDTH 12.8 % (11.5-15.5)
[2024-05-05 21:02] LABS: ALBUMIN 4.2 g/dL (3.2-5.0); BILIRUBIN, TOTAL 0.6 mg/dL (0.2-1.3); POTASSIUM 4.5 mmol/l (3.5-5.1); TOTAL PROTEIN 6.9 g/dL (6.3-8.2)
[2024-05-05 22:46] LABS: URINE BILIRUBIN - DIPSTICK Negative (NEGATIVE); URINE BLOOD DIPSTICK Negative (NEGATIVE); URINE COLOR Yellow; URINE GLUCOSE - DIPSTICK >=1000 mg/dL (NEGATIVE); URINE KETONE Negative (NEGATIVE); URINE LEUK ESTERASE Negative (NEGATIVE); URINE NITRITE - DIPSTICK Negative (Negative); URINE PROTEIN - DIPSTICK Trace mg/dL (NEG-TRACE); URINE SPECIFIC GRAVITY 1.015; URINE UROBILINOGEN - DIPSTICK 0.2 E.U./dL (0.2)
== END 2024-05-05 23:50 | disposition home or self-care (01) ==
LOC: ED 20:10
PROVIDERS: Emergency Medicine
DX: E11.65 Type 2 diabetes mellitus with hyperglycemia (principal); I10 Essential (primary) hypertension; G40.909 Epilepsy, unspecified, not intractable, without status epilepticus; Z86.73 Personal history of transient ischemic attack (TIA), and cerebral infarction without residual deficits; Z79.4 Long term (current) use of insulin